=== PATIENT | female | born 1990 | race Caucasian/White ===

== ENCOUNTER 2018-03-23 00:22 | Outpatient (CLI) | payer BC, MEDICAID, SELFPAY ==
--- NOTE | 2018-03-23 09:48 | DI.US_ITS ---
SYMPTOMS/DIAGNOSIS: RT UPPER QUAD DISCOMFORT FOR YEARS, RUQ PAIN, R10.11 ABDOMEN ULTRASOUND: The liver is normal in size and echogenicity. No focal liver lesions or biliary dilatation is seen. The gallbladder has a normal appearance. There is no evidence of wall thickening or stones. The spleen, kidneys, pancreas and aorta appear normal. There is no ascites. IMPRESSION: Negative abdomen ultrasound.
== END 2018-03-23 00:42 ==
PROVIDERS: PCP Nurse Practitioner; Visit Provider Nurse Practitioner
DX: R10.11 Right upper quadrant pain (principal)
CPT/HCPCS: 76700

== ENCOUNTER 2018-04-23 09:26 | Day surgery (SDC) | payer BC, MEDICAID, SELFPAY ==
--- NOTE | 2018-04-23 06:24 | ROE_ITS ---
Operative Note DATE OF PROCEDURE: 04/23/18 PRE-OP DIAGNOSIS: Upper Abdominal pain POST-OP DIAGNOSIS: other (Moderate to severe inflammation of the stomach) PROCEDURE: EGD with biopsies SURGEON: Shantel Dean ANESTHESIA: MAC (Yesica Nunez) ESTIMATED BLOOD LOSS: 5 PATHOLOGY: other (Gastric biopsies) COMPLICATIONS: None Patient was transported to: same day Patient's condition: stable Indications: Ms. Sahni was seen in the office for upper abdominal pain. Risks , benefits and complications were reviewed with her regarding the EGD. Questions were entertained and answered to her satisfaction and she wished to proceed. No guarantees were given or implied. Findings: Moderate to severe inflammation of the stomach Procedure Description: After informed consent was obtained the patient was taken to the procedure room and placed in a left decubitous position. Monitors were applied and a time out was done. The patients name, date of , procedure, allergies to medications and metal in their body was reviewed. The patient was then sedated and a bite block was placed. The gastroscope was introduced and advanced through the oropharynx. The oropharynx was grossly normal. The scope was advanced into the esophagus. The proximal esophagus was normal. The mid-esophagus was normal. The distal esophagus was normal. The scope was advnaced into the stomach and through the pylorus into the duodenum. The duodenum was normal. The scope was retracted into the stomach. There was moderate to severe inflammation. Biopsies of the antrum were done. The scope was retroflexed and no hiatal hernia was identified. The scope was straightened and retracted into the esophagus. The Z-line was regular. The GE junction was at 35 cm. The patient tolerated the procedure well and there were no immediate complications. Follow up: The patient should follow up in 2-3 weeks
--- NOTE | 2018-04-23 06:25 | PDOC.DSDIS_ITS ---
Discharge Plan Disposition Patient Disposition: HOME Discharge Details Attending Provider: Shantel Dean Primary Care Provider: Esther Blankenship Home Meds and New Rx's Prescriptions: New omeprazole 40 mg capsule,delayed release(DR/EC) 40 mg PO .AM Qty: 30 RF: 3 Continue lamotrigine 200 MG tablet 200 mg PO DAILY Qty: 90 RF: 1 albuterol sulfate [ProAir HFA] 8.5 GM HFA aerosol inhaler 2 puff Inhalation ONCE Qty: 1 RF: 12 escitalopram oxalate 20 MG tablet 20 mg PO DAILY Qty: 90 RF: 3 Changed ranitidine HCl 150 MG capsule 300 mg PO HS Qty: 180 RF: 0 Discontinued ibuprofen 800 mg tablet 800 mg PO TID PRN (Reason: pain) Qty: 90 RF: 0 Discharge Instructions Instructions: Upper Endoscopy (DC), Gastritis (DC), Diet for Stomach Ulcers and Gastritis (GEN) Additional Instructions: Findings: 1. Moderate to severe inflammation of the stomach Follow up: 2-3 weeks New Medications: Omeprazole 40 mg in the morning Change Ranitidine to 300 mg every night Please call if you develop: fevers >101.5 Nausea or Vomiting Abdominal pain that is not transient 1. Because there will be medication in your system for the next 24 hours, you may feel a little sleepy. Your coordination will be affected. Therefore: a. Do not drive or operate dangerous equipment for 24 hours. b. Do not drink alcohol beverages for 24 hours (not even beer). c. Plan to go home and rest for the day. 2. Generally there are no restrictions on your activity after a day or so has gone by, but you may feel a bit fatigued for a few days. 3 After you arrive home you may have a light meal and return to a normal diet as you can tolerate it without feeling sick to your stomach. 4. After surgery, you may feel pain or discomfort. This should be only transient , but if it persists please contact your doctor. 5. If there are any questions regarding the findings of your procedure, please feel free to contact your doctor. 6. If you are unable to contact your doctor with a problem, contact the hospital at [phone]. 7. Continue all your regular medications unless directed otherwise. I understand the above instructions and have no questions. Signature of Patient or Responsible Adult Escort Date/Time Name of Responsible Adult Escort Signature of Nurse Date/Time Activity:: Activity as Tolerated Diet:: Low acid Discharge Orders Discharge Orders: Discharge Order (Routine); Ordered 04/23/18 Ordered By: Shantel Dean DS: Diagnosis Discharge Diagnosis (1) Gastritis: Status: Acute
[2018-04-23 09:38] VITALS: BP 111/74; PULSE 85; RESP 16; TEMP 36.8; O2SAT 97
[2018-04-23] MEDS: Lactated Ringers 1,000 ML 80 ML IV ×2 (10:19→11:56)
--- NOTE | 2018-04-23 12:02 | STOM_PTH ---
PATIENT: Sabrina Sahni LOC: [facility] U#:[id number] AGE/SX: 27/F ROOM: RE04/23/[address]: Shantel Dean MD : 1990 BED: DIS: 04/23/2018 SPEC #: [id number] RECD: 04/23/18 12:39 STATUS: MARY BETH RE #: [id number] TRISTIAN: 04/23/18 12:[address]: Shantel Dean DEPT: Surgical Specimen RECD BY: Leticia Richards ENTERED: 04/23/18 12:39 SP TYPE: STOMACH OTHR DR: Esther Blankenship APRN Tissues: 1 - STOMACH BIOPSY Procedures: GROSS AND MICRO LEVEL 4 Comments: [id number]
[2018-04-23 12:40] VITALS: BP 108/68; PULSE 60; RESP 16; TEMP 36.9; O2SAT 98
== END 2018-04-23 12:52 | disposition home or self-care (01) ==
LOC: SUR 09:26
PROVIDERS: PCP Nurse Practitioner; Visit Provider Surgery
PROC: 0DJ68ZZ Inspection of Stomach, Via Natural or Artificial Opening Endoscopic (ICD-10-PCS; CPT 43235; principal; 2018-04-23 11:15)
DX: R10.11 Right upper quadrant pain (principal); K29.50 Unspecified chronic gastritis without bleeding; B96.81 Helicobacter pylori [H. pylori] as the cause of diseases classified elsewhere; K21.9 Gastro-esophageal reflux disease without esophagitis; F17.210 Nicotine dependence, cigarettes, uncomplicated
CPT/HCPCS: 43239; 88305

== ENCOUNTER 2019-06-26 08:38 | Emergency (ER) | payer BC, SELFPAY ==
[2019-06-26 08:44] VITALS: BP 118/75; PULSE 74; RESP 18; TEMP 36.6; O2SAT 97
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
== END 2019-06-26 08:58 | disposition home or self-care (01) ==
PROVIDERS: Emergency Provider Emergency Medicine; PCP Nurse Practitioner
DX: J02.0 Streptococcal pharyngitis (principal)
CPT/HCPCS: 87880; 99283

== ENCOUNTER 2020-04-21 01:02 | Outpatient (CLI) | payer BC, SELFPAY ==
--- NOTE | 2020-04-21 06:15 | DI.US_ITS ---
EXAM: US PELVIS TRANSVAGINAL CLINICAL HISTORY: pelvic pain,r10.2 TECHNIQUE: Transabdominal and transvaginal imaging was performed using standard protocol. COMPARISON: US PELVIS TRANSVAG from 10/08/2014 FINDINGS: KIDNEYS: Kidneys are symmetric in size. No evidence of renal calculi. No evidence of hydronephrosis. No renal mass or cyst identified. UTERUS: Anteverted. 7.4 x 4.2 x 5.3 cm. Endometrium: 4 millimeters. An IUD is seen in the endometrium and appears appropriately positioned . Myometrium: No fibroids. scars. Cervix: Unremarkable. OVARIES: Right: Cyst or mass: None. Left: Cyst or mass: None. DOPPLER: Color: Symmetric and uniform flow to both ovaries. No hyperemia. Duplex: Normal ovarian arterial waveforms visualized. CUL-DE-SAC: Free fluid: None. IMPRESSION: 1. Normal-appearing uterus with endometrial stripe within normal limits. IUD. 2. Unremarkable bilateral ovaries. DATA REPOSITORY:
== END 2020-04-21 01:22 ==
PROVIDERS: PCP Nurse Practitioner; Visit Provider Obstetrics & Gynecology Gynecology
DX: R10.2 Pelvic and perineal pain (principal); Z97.5 Presence of (intrauterine) contraceptive device
CPT/HCPCS: 76830; 76856

== ENCOUNTER 2020-05-24 20:12 | Emergency (ER) | payer BC, SELFPAY ==
[2020-05-24 20:15] VITALS: BP 120/90; PULSE 85; RESP 16; TEMP 36.9; O2SAT 97
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
[2020-05-24] MEDS: Ibuprofen 800 MG TAB PO (20:34)
[2020-05-24] MEDS: Amoxicillin 875/Clav. 125 TAB PO (20:34)
== END 2020-05-24 20:40 | disposition home or self-care (01) ==
PROVIDERS: Emergency Provider Emergency Medicine; PCP Nurse Practitioner
DX: R68.84 Jaw pain (principal); K04.7 Periapical abscess without sinus
CPT/HCPCS: 99283

== ENCOUNTER 2020-05-29 01:41 | Outpatient (CLI) | payer BC, SELFPAY ==
[2020-05-31 11:52] LABS: SARS-CoV-2 RNA Not Detected (NotDetected); SARS-CoV-2 RNA Source Nasal/Nares
== END 2020-05-29 02:01 ==
PROVIDERS: PCP Nurse Practitioner; Visit Provider Surgery
DX: Z11.59 Encounter for screening for other viral diseases (principal); Z01.818 Encounter for other preprocedural examination
CPT/HCPCS: U0003

== ENCOUNTER 2022-03-09 14:33 | Outpatient (CLI) | payer BC, SELFPAY | END 2022-03-09 14:34 | disposition home or self-care (01) | LOC: DI.KIM 14:34 | PROVIDERS: PCP Nurse Practitioner; Visit Provider Nurse Practitioner | DX: R69 Illness, unspecified (principal) | CPT/HCPCS: 93010 ==

== ENCOUNTER 2022-04-01 12:21 | Outpatient (REF) | payer BC, SELFPAY ==
[2022-04-02 14:30] LABS: Chlamydia Result Negative (Negative); GC Result Negative (Negative)
== END 2022-04-01 12:22 | disposition home or self-care (01) ==
LOC: LBN 12:21
PROVIDERS: PCP Nurse Practitioner; Visit Provider Obstetrics & Gynecology Gynecology
DX: Z11.3 Encounter for screening for infections with a predominantly sexual mode of transmission (principal)
CPT/HCPCS: 87491; 87591

== ENCOUNTER 2022-04-07 11:24 | Outpatient (REF) | payer BC, SELFPAY ==
--- NOTE | 2022-04-07 10:30 | PAPFT_PTH ---
PATIENT: Sabrina Sahni LOC: [facility] U#:[id number] AGE/SX: 31/F ROOM: RE04/07/[address]: Mari Bennett : 1990 BED: DIS: 04/07/2022 SPEC #: [id number] RECD: 04/07/22 12:55 STATUS: MARY BETH REChristophe #: [id number] TRISTIAN: 04/07/22 10:[address]: Mari Bennett DEPT: [facility] Cytology RECD BY: Leticia Richards ENTERED: 04/07/22 12:55 SP TYPE: PAPFT OTHR DR: Esther Blankenship APRN Tissues: 1 - CX/ENDOCX FOR PAP SMEARS Procedures: PAP THIN PREP/[facility] Screening HPV DNA PROBE Comments: [id number]
--- OUTSIDE RECORDS SUMMARY | 2022-04-07 11:30 | XMS_ITS | Encounter Summary ---
:1990 Author Organization [facility] Address [address] [place] [address] Care Team Providers Name Role Phone Rigo Esteves MD Primary Care Provider Unavailable Encounter Details Date Type Department Care Team Description 01/22/2014 Hospital Encounter [facility] Unknown, Provider, Karthik Hickman [address] [place] [address] [place] [address] (Work) [phone] Social History Tobacco Use Types Packs/Day Years Used Date Never Assessed Sex Assigned at Date Recorded Not on file documented as of this encounter Discharge Disposition Disposition Code Departure Means Destination Home or Self Long Term documented in this encounter Plan of Treatment Not on filedocumented as of this encounter Visit Diagnoses Not on filedocumented in this encounter Care Teams Trainer Relationship Specialty Start Date End Date Rigo Esteves MD PCP - General 09/20/10 documented as of this encounter
--- OUTSIDE RECORDS SUMMARY | 2022-04-07 11:30 | XMS_ITS | Encounter Summary ---
:1990 Author Organization [facility] [place] [address] Care Team Providers Name Role Phone Esther Blankenship APRN Primary Care Provider Reason for Referral Diagnostic Test (Routine) - Closed Specialty Diagnoses / Procedures Referred By Contact Refer red To Contact Radiology Diagnoses Abdominal wall mass Endometriosis Jaya Garrett MD [facility] Rad Mri Procedures MRI Pelvis Soft Tissue(Gi Gu Caul Dresser)WWO Contrast MRI Pelvis Soft Tissue (Gi Gu Caul Dresser)WO Contrast [facility] [address] [place] [address] Referral ID Status Reason Start Date Expiration Date Visits V isits Requested Authorized [id number] Closed Specialty 12/29/2016 03/29/2017 1 1 Service Requested Reason for Visit Diagnostic Test (Routine) - Closed Specialty Diagnoses / Procedures Referred By Contact Refer red To Contact Radiology Diagnoses Abdominal wall mass Endometriosis Jaya Garrett MD [facility] Rad Mri Procedures MRI Pelvis Soft Tissue(Gi Gu Caul Dresser)WWO Contrast MRI Pelvis Soft Tissue (Gi Gu Caul Dresser)WO Contrast [facility] [place] [address] [place] [address] Referral ID Status Reason Start Date Expiration Date Visits V isits Requested Authorized [id number] Closed Specialty 12/29/2016 03/29/2017 1 1 Service Requested Encounter Details Date Type Department Care Team Description 01/02/2017 Hospital Encounter MRI at [facility] Jaya Garrett Abdominal wall mass; [facility] MD [address] [place], [place] [address] OBSTETRICS & [phone] [place] [address] Social History Tobacco Use Types Packs/Day Years Used Date Current Every Day Smoker 0.5 Smokeless Tobacco: Never Used Alcohol Use Standard Drinks/Week Comments Yes 0 (1 standard drink = 0.6 oz pure alcoho l) seldom Alcohol Habits Answer Date Recorded How often do you have a drink containing alcohol? Not asked How many drinks containing alcohol do you have on a typical Not asked day when you are drinking? How often do you have six or more drinks on one occasion? No t asked Comment: seldom 07/27/2015 Sex Assigned at Date Recorded Not on file documented as of this encounter Medications at Time of Discharge Medication Sig Dispensed Refills Start Date End Date buPROPion (WELLBUTRIN XL) take 1 tablet by mouth 0 12/28/2016 300 mg Tablet Sustained daily every morning Release 24 hr levonorgestrel (MIRENA) 1 each by Intrauterine 0 20 mcg/24 hr (5 years) route once. IUDIndications: inserted Indications: inserted 10/2015 per patient 10/2015 per patient pantoprazole (PROTONIX) Reported on 01/02/2017 0 0 10/05/2016 40 mg Tablet, Delayed Release (E.C.) dextroamphetamine-ampheta Reported on 01/02/2017 0 09/22/2016 mine (ADDERALL) 10 mg Tablet Biotin 5 mg Capsule Take by mouth. 0 albuterol (PROVENTIL Inhale 2 puffs into 1 Inhaler 1 2016 HFA;VENTOLIN HFA;PROAIR) the lungs every 4 90 mcg/actuation HFA hours as needed for Aerosol Inhaler Wheezing. Use with spacer ondansetron (ZOFRAN-ODT) Take 1 tablet by mouth 20 tablet 1 10/24/2015 4 mg Tablet, Rapid every 8 hours as Dissolve needed for Nausea. ibuprofen (ADVIL;MOTRIN) Take 3 tablets by 30 tablet 0 10/08 200 mg Tablet mouth every 6 hours as needed for Pain. Ranitidine HCl (ZANTAC) Take 300 mg by mouth 0 300 mg Capsule every evening. Reported on 10/20/2016 documented as of this encounter Plan of Treatment Not on filedocumented as of this encounter Procedures Procedure Name Priority Date/Time Associated Diagnosis Comme nts MRI PELVIS SOFT Routine 01/02/2017 11:57 AM Abdominal wa ll mass Results for this TISSUE (GI WELDING MACHINE OPERATOR RESISTANCE) EDT Endometriosis procedur e are in WWO CONTRAST the results section. documented in this encounter Results MRI Pelvis Soft Tissue(Gi Gu Caul Dresser)WWO Contrast (01/02/2017 11:57 AM EDT) Anatomical Region Laterality Modality Pelvis Magnetic Resonance Specimen (Source) Anatomical Location Collection Method / Collectio n Time Received Time / Laterality Volume Impressions 01/03/2017 9:18 AM EDT 1. ??No MRI signal abnormality in the left rectus abdominus surgical bed. 2. ??No lesions in the subcutaneous tiss ues or deep to the four anterior abdominal wall makers. 3. ??No evidence of intraperitoneal endo metrial implants. I have personally reviewed the image(s) and the residents interpretation and agree with the findings, Tova triana 01/03/2017 9:18 AM Narrative 01/03/2017 9:18 AM EDT EXAMINATION: MRI PELVIS SOFT TISSUE (GI WELDING MACHINE OPERATOR RESISTANCE) WWO CONTRAST CLINICAL HISTORY: abdominal wall mass, p rior endometrioma excision on 10/23/2015 from the left anterior abdominal wall wi th recurrent pain and lump at site. Additional history includes 1-2mm firm n odule in LLQ surgical scar, tender with palpation. TECHNIQUE: MRI of the abdomen and pelvis with intra venous contrast, 20 cc of Dotarem was administered intravenously. Four markers are placed on the skin to indicate the site of interest. COMPARISON: MRI of the abdomen 10/03/2015 FINDINGS: No MRI signal abnormality in the locatio n of the prior resection site in the left rectus abdominus muscle. No lesions in the subcutaneous tissues or deep to or between the four anterior abdominal w all markers which were placed to indicate the recurrent pain and lump. Normal appearance of the uterus and both ovaries. No peritoneal nodules or free fluid. Images of the upper abdomen demonstrate no focal hepatic abnormalities. ?? No dilated intrahepatic or extrahepatic lupillo e ducts. The gallbladder is normal in appearance. ??The pancreas is normal in appearance. ??The pancreatic duct is not dilated. ??No splenic abnormalities are seen. The adrenal glands are unremarkable. ??B oth kidneys opacify symmetrically with contrast without collecting system dilat ation. No renal mass. No abdominal aortic aneurysm is seen. ?? No retroperitoneal lymphadenopathy is seen. No dilated loops of bowel or bowel wall thickening. No focal bone marrow signal abnormality. Procedure Note Tova Barillas MD - 01/03/2017Formatt ing of this note might be different from the original. EXAMINATION: MRI PELVIS SOFT TISSUE (GI WELDING MACHINE OPERATOR RESISTANCE) WWO CONTRAST CLINICAL HISTORY: abdominal wall mass, p rior endometrioma excision on 10/23/2015 from the left anterior abdominal wall wi th recurrent pain and lump at site. Additional history includes 1-2mm firm n odule in LLQ surgical scar, tender with palpation. TECHNIQUE: MRI of the abdomen and pelvis with intra venous contrast, 20 cc of Dotarem was administered intravenously. Four markers are placed on the skin to indicate the site of interest. COMPARISON: MRI of the abdomen 10/03/2015 FINDINGS: No MRI signal abnormality in the locatio n of the prior resection site in the left rectus abdominus muscle. No lesions in the subcutaneous tissues or deep to or between the four anterior abdominal w all markers which were placed to indicate the recurrent pain and lump. Normal appearance of the uterus and both ovaries. No peritoneal nodules or free fluid. Images of the upper abdomen demonstrate no focal hepatic abnormalities. No dilated intrahepatic or extrahepatic lupillo e ducts. The gallbladder is normal in appearance. The pancreas is normal in ap pearance. The pancreatic duct is not dilated. No splenic abnormalities are se en. The adrenal glands are unremarkable. Bot h kidneys opacify symmetrically with contrast without collecting system dilat ation. No renal mass. No abdominal aortic aneurysm is seen. No retroperitoneal lymphadenopathy is seen. No dilated loops of bowel or bowel wall thickening. No focal bone marrow signal abnormality. IMPRESSION 1. No MRI signal abnormality in the left rectus abdominus surgical bed. 2. No lesions in the subcutaneous tissue s or deep to the four anterior abdominal wall makers. 3. No evidence of intraperitoneal endome trial implants. I have personally reviewed the image(s) and the residents interpretation and agree with the findings, Tova triana 01/03/2017 9:18 AM Jaya Garrett MD IMG MRI ORDERABLES documented in this encounter Visit Diagnoses Diagnosis Abdominal wall mass Abdominal or pelvic swelling, mass or mounika mp, unspecified site Endometriosis Endometriosis, site unspecified documented in this encounter Care Teams Bottle House Cleaners Supervisor Relationship Specialty Start Date End Date Esther Blankenship APRN PCP - General Internal Medicine 10/21/[address] [place] [address] documented as of this encounter
--- OUTSIDE RECORDS SUMMARY | 2022-04-07 11:30 | XMS_ITS | Encounter Summary ---
:1990 Author Organization [facility] Address [address] [place] [address] Care Team Providers Name Role Phone Rigo Esteves MD Primary Care Provider Unavailable Encounter Details Date Type Department Care Team Description 12/13/2013 Results Only [facility] Dedrick Ramesh, [facility] Laboratory Services - [address] [place], [place] [address] [facility] [address] [place] [address] [phone] Social History Tobacco Use Types Packs/Day Years Used Date Never Assessed Sex Assigned at Date Recorded Not on file documented as of this encounter Plan of Treatment Not on filedocumented as of this encounter Procedures Procedure Name Priority Date/Time Associated Diagnosis Comme nts PAP TEST- RESULT Routine 12/13/2013 0:00 EDT Resu lts for this ONLY procedure are i n the results section. documented in this encounter Results PAP TEST- RESULT ONLY (12/13/2013 0:00 EDT) Pathology Report: CYTOPATHOLOGY REPORT MODE [facility] Reports generated via electronic interface contain guero ginal data; however they are lacking the format of the original re port. Caution should be taken when reading/interpreting unfo rmatted reports. Name: ? SABRINA STAUFFER ? Accession #: ? [id number] : ? 1990 (Age: 23) ??F ?Collect Date: ? 12/2013 Location: ? [facility] ? Receive Date : ? 12/16/2013 Provider: ?ROB BYRON PLATE PRINTER Copy to: ? Specimen/Source: ? Pap Test, Cervix/Endocervix, ThinPrep Imaging System with manual evaluation Last Menstrual Period: ? 11/11/2013 ? SPECIMEN ADEQUACY ? Satisfactory for Evaluation - transformation zone component present GENERAL CATEGORIZATION ? Negative for Intraepithelial Lesion or Malignan cy ? Document reviewed and electronically signed by: ? KSENIA Cummins(ASCP) ? Report Date: ??12/23/2013 10:14 End of Report Specimen Performing Organization Address City/State/ZIP Code Phon e Number [facility] [address] [place] [address] SERVICES [facility] [address] [place] [address] documented in this encounter Visit Diagnoses Not on filedocumented in this encounter Care Teams Solution Design Engineer Relationship Specialty Start Date End Date Rigo Esteves MD PCP - General 09/20/10 documented as of this encounter
--- OUTSIDE RECORDS SUMMARY | 2022-04-07 11:30 | XMS_ITS | Encounter Summary ---
:1990 Author Organization [facility] [place] [address] Care Team Providers Name Role Phone Esther Blankenship APRN Primary Care Provider Reason for Visit Reason Comments Follow-up MRI Encounter Details Date Type Department Care Team Description 01/02/2017 Office Visit Obstetrics and Jaya Garrett, Depressi on, unspecified depression type; [place] [facility] [place] Endometriosis [facility] [address] [place] OBSTETRICS & [address] GYNECOLOGY [phone] [place], [place] [address] Social History Tobacco Use Types Packs/Day Years [...] on file documented as of this encounter Last Filed Vital Signs Vital Sign Reading Time Taken Comments Blood Pressure 108/64 01/02/2017 12:58 PM EDT Pulse 80 01/02/2017 12:58 PM EDT Temperature 37.3 ??C (99.2 ??F) 01/02/2017 12:58 PM EDT Respiratory Rate 14 01/02/2017 12:58 PM EDT Oxygen Saturation 97% 01/02/2017 12:58 PM EDT Inhaled Oxygen Concentration - - Weight 72.9 kg (160 lb 11.5 oz) 01/02/2017 12:58 PM EDT Height 166 cm (5' 5.35) 01/02/2017 12:58 PM EDT Body Mass Index 26.46 01/02/2017 12:58 PM EDT documented in this encounter Progress Notes Jaya Garrett MD - 01/02/2017 1:00 PM EDT Sabrina was seen in followup today after an MRI to assess the extent of recurrent endometriosis in her abdominal wall. At the time of the visit, the results of the MRI were not available to us. She states that she does have ongoing severe pain in her abdominal wall at 3 different spots; on the left where her prior surgery was and then on the right side supraumbilically is a small nodule that bothers her. This is cyclic pain and is not associated with any activities. Sabrina would like to have me sign paperwork today limiting her number of hours she participates in work-like activities due to her endometriosis-type pain. I told her I am not comfortable with that, as endometriosis is not a usual diagnosis associated with disability. I did offer to refer [facility] for evaluation and recommend that her primary care provider be the person to assess her ability to attend the time work events. At this point, the patient was visibly upset and asked if she could leave. She walked out of the appointment before we could discuss the results of the MRI. The MRI results are available to me at the time of dictation, showing no residual endometriosis-like lesions or other disease in the anterior abdominal wall at the site of surgery or any other areas. There are no obvious lesions in the abdomen or pelvis intraperitoneally. Sabrina does have an intrauterine device in situ and this has been the best menstrual control that she has had. I recommend that she keep this device long-term, and if she has severe recurrent cyclic pelvic pain unrelated to this abdominal wall pain, a diagnostic laparoscopy for endometriosis may be warranted at some point in the future. I spent 25 minutes in [id number] care with the patient, of which 25 minutes was spent in counseling and discussion. documented in this encounter Plan of Treatment Not on filedocumented as of this encounter Visit Diagnoses Diagnosis Depression, unspecified depression type Endometriosis Endometriosis, site unspecified documented in this encounter Care Teams Brush Sander Relationship Specialty Start Date End Date Esther Blankenship APRN PCP - General Internal Medicine 10/21/[address] [place] [address] documented as of this encounter
--- OUTSIDE RECORDS SUMMARY | 2022-04-07 11:30 | XMS_ITS | Encounter Summary ---
:1990 [place] [address] Care Team Providers Name Role Phone None Primary Care Provider Unavailable Reason for Visit Reason Comments Dental Pain Encounter Details Date Type Department Care Team Description 02/15/2016 - Emergency Emergency Amy Esquivel Pain, denta l; 02/16/2016 Department Elen Zurita MD Temporomandibular joint (TMJ) pain; [facility] MEDICAL Pulpitis; [facility] Arthralgia of left temporomandibular mario nt [facility] [address] MEDICINE [place] [phone] Social History Tobacco Use Types Packs/Day Years [...] Sign Reading Time Taken Comments Blood Pressure 120/76 02/15/2016 10:25 PM EDT Pulse 69 02/15/2016 10:25 PM EDT Temperature 36.7 ??C (98.1 ??F) 02/15/2016 10:25 PM EDT Respiratory Rate 16 02/15/2016 10:25 PM EDT Oxygen Saturation 99% 02/15/2016 10:25 PM EDT Inhaled Oxygen Concentration - - Weight - - Height - - Body Mass Index - - documented in this encounter Discharge Instructions Discharge InstructionsAmy Esquivel MD - 02/15/2016 11:54 PM EDT Images from the original note were not included. Take penicillin as prescribed. Take ibuprofen 400 mg every 6 hours as needed for pain. Follow-up with your dentist. [facility] Head or Face Pain: After Your Visit Your Care Instructions Common causes of head or face pain are allergies, stress, and injuries. Other causes include tooth problems and sinus infections. Eating certain foods, such as chocolate or cheese, or drinking certain liquids, such as coffee or cola, can cause head pain for some people. If you have mild head pain, you may not need treatment. It is important to watch your symptoms and talk to your doctor if your pain continues or gets worse. Follow-up care is a johnson part of your treatment and safety. Be sure to make and go to all appointments, and call your doctor if you are having problems. It???s also a good idea to know your test resultsand keep a list of the medicines you take. How can you care for yourself at home? ?? Take pain medicines exactly as directed. ?? If the doctor gave you a prescription medicine for pain, take it as prescribed. ?? If you are not taking a prescription pain medicine, ask your doctor if you can take an bwdo-oxq-pdgukve pain medicine. ?? Take it easy for the next few days or longer if you are not feeling well. ?? Use a warm, moist towel or heating pad set on low to relax tight muscles in your shoulder and neck. Have someone gently massage your neck and shoulders. ?? Put ice or a cold pack on the area for 10 to 20 minutes at a time. Put a thin cloth between the ice and your skin. When should you call for help? Call 911 anytime you think you may need emergency care. For example, call if: ?? You have twitching, jerking, or a seizure. ?? You passed out (lost consciousness). ?? You have signs of a stroke. These may include: ?? Sudden numbness, paralysis, or weakness in your face, arm, or leg, especially on only one side ofyour body. ?? New problems with walking or balance. ?? Sudden vision changes. ?? Drooling or slurred speech. ?? New problems speaking or understanding simple statements, or feeling confused. ?? A sudden, severe headache that is different from past headaches. ?? You have jaw pain and pain in your chest, shoulder, neck, or arm. Call your doctor now or seek immediate medical care if: ?? You have a fever with a stiff neck or a severe headache. ?? You have nausea and vomiting, or you cannot keep food or liquids down. Watch closely for changes in your health, and be sure to contact your doctor if: ?? Your head or face pain does not get better as expected. Where can you learn more? Visit our [employer] information library at [email or web address] You can also view health information on [employer], your personal patient account. Log in or sign up today. Enter P568 in the search box to learn more about Head or Face Pain: After Your Visit. ?? [id number] [employer]. Care instructions adapted under license by [facility]. This care instruction is for use with your licensed healthcare professional. If you have questionsabout a medical condition or this instruction, always ask your healthcare professional. [employer] disclaims any warranty or liability for your use of this information. Content Version: 10.4.641385; Current as of: May 23, 2014 [facility] Head or Face Pain: After Your Visit Your Care Instructions Common causes of head or face pain are allergies, stress, and injuries. Other causes include tooth problems and sinus infections. Eating certain foods, such as chocolate or cheese, or drinking certain liquids, such as coffee or cola, can cause head pain for some people. If you have mild head pain, you may not need treatment. It is important to watch your symptoms and talk to your doctor if your pain continues or gets worse. Follow-up care is a johnson part of your treatment and safety. Be sure to make and go to all appointments, and call your doctor if you are having problems. It???s also a good idea to know your test resultsand keep a list of the medicines you take. How can you care for yourself at home? ?? Take pain medicines exactly as directed. ?? If the doctor gave you a prescription medicine for pain, take it as prescribed. ?? If you are not taking a prescription pain medicine, ask your doctor if you can take an xpcx-lyr-uigcalr pain medicine. ?? Take it easy for the next few days or longer if you are not feeling well. ?? Use a warm, moist towel or heating pad set on low to relax tight muscles in your shoulder and neck. Have someone gently massage your neck and shoulders. ?? Put ice or a cold pack on the area for 10 to 20 minutes at a time. Put a thin cloth between the ice and your skin. When should you call for help? Call 911 anytime you think you may need emergency care. For example, call if: ?? You have twitching, jerking, or a seizure. ?? You passed out (lost consciousness). ?? You have signs of a stroke. These may include: ?? Sudden numbness, paralysis, or weakness in your face, arm, or leg, especially on only one side ofyour body. ?? New problems with walking or balance. ?? Sudden vision changes. ?? Drooling or slurred speech. ?? New problems speaking or understanding simple statements, or feeling confused. ?? A sudden, severe headache that is different from past headaches. ?? You have jaw pain and pain in your chest, shoulder, neck, or arm. Call your doctor now or seek immediate medical care if: ?? You have a fever with a stiff neck or a severe headache. ?? You have nausea and vomiting, or you cannot keep food or liquids down. Watch closely for changes in your health, and be sure to contact your doctor if: ?? Your head or face pain does not get better as expected. Where can you learn more? Visit our health information library at [email or web address] You can also view health information on [employer], your personal patient account. Log in or sign up today. Enter P568 in the search box to learn more about Head or Face Pain: After Your Visit. ?? [id number] [employer]. Care instructions adapted under license by [facility]. This care instruction is for use with your licensed healthcare professional. If you have questionsabout a medical condition or this instruction, always ask your healthcare professional. [employer] disclaims any warranty or liability for your use of this information. Content Version: 10.4.027837; Current as of: May 23, 2014 documented in this encounter Medications at Time of Discharge Medication Sig Dispensed Refills Start Date End Date ondansetron (ZOFRAN-ODT) Take 1 tablet by 20 tablet 1 10/23 4 mg Tablet, Rapid mouth every 8 hours Dissolve as needed for Nausea. ibuprofen (ADVIL;MOTRIN) Take 3 tablets by 30 tablet 0 10/08 200 mg Tablet mouth every 6 hours as needed for Pain. Ranitidine HCl (ZANTAC) Take 300 mg by mouth 0 300 mg Capsule every evening. Reported on 10/20/2016 penicillin v potassium Take 1 tablet by 40 tablet 0 016 02/25/2016 (VEETID) 500 mg Tablet mouth 4 times daily for 10 days. documented as of this encounter ED Notes Amy Esquivel MD - 02/15/2016 11:54 PM EDT Images from the original note were not included. Chief Complaint Patient presents with ??? Dental Pain HPI The patient is a 25-year-old woman who comes to the emergency department with left jaw pain for one month. She has a history of dental caries and multiple extractions. She saw her dentist about her posterior most lower molar on the left side a couple months ago and it was causing her some discomfort. At that time her dentist decided to watch it and consider extraction later if it caused her problems.She has had this pain for the past month and rates it at a 5 out of 10 now. 7 out of 10 was it's worse. It is worse when she opens her mouth and better with ibuprofen. She says 800 mg of ibuprofen is ineffective for the tooth pain. She tried some penicillin at home which was one year and did not get any significant improvement. Her boyfriend is upstairs admitted for seizures and so she decided to come to the emergency department to be evaluated. She has no fever. She has a sinusitis a few weeks ago. She has some residual cough. She has no headache or trismus. No diplopia or ear drainage. She has chronic lightheadedness. No shortness of breath, difficult to swallowing or pain with swallowing or difficulty breathing. No chest pain. No vomiting. She has had some intermittent nausea that has resolved. Allergies Allergen Reactions ??? Zoloft [Sertraline] Itching Review of Systems Physical Exam Constitutional: She is oriented to person, place, and time. She appears well- developed and well-nourished. No distress. HENT: Head: Normocephalic and atraumatic. Right Ear: External ear normal. Left Ear: External ear normal. Nose: Nose normal. Mouth/Throat: Oropharynx is clear and moist and mucous membranes are normal. No oral lesions. No trismus in the jaw. Abnormal dentition. Dental caries present. No dental abscesses, uvula swelling or lacerations. No oropharyngeal exudate. The patient has some missing teeth from extractions. Diffuse dental caries. No significant erythema or swelling of the gum most notably at the left posterior lower molar where her pain is concentrated.She has some tenderness over the jaw at that at that location but has no swelling or warmth or erythema. Bilateral TMs were clear. She did have some pain over the temporomandibular joint on the left with mouth opening. Eyes: Conjunctivae are normal. Right eye exhibits no discharge. Left eye exhibits no discharge. No scleral icterus. Neck: Normal range of motion. Neck supple. Cardiovascular: Normal rate, regular rhythm and normal heart sounds. Exam reveals no gallop and no friction rub. No murmur heard. Pulmonary/Chest: Effort normal and breath sounds normal. No stridor. No respiratory distress. She has no wheezes. She has no rales. She exhibits no tenderness. Abdominal: Soft. Bowel sounds are normal. She exhibits no distension and no mass. There is no tenderness. There is no rebound and no guarding. Musculoskeletal: She exhibits no edema. Lymphadenopathy: She has no cervical adenopathy. Neurological: She is alert and oriented to person, place, and time. Skin: Skin is warm and dry. She is not diaphoretic. Psychiatric: She has a normal mood and affect. Nursing note and vitals reviewed. Procedures MDM ED Course: ED Course There is no data filed. The patient was given penicillin for 10 days for presumed pulpitis. She does have pain in her jaw around the site of her left lower posterior most molar. Her dentist had been considering extraction andthat may be what she needs at this point. She will use ibuprofen for pain and follow up with her dentist. She has no signs of airway compromise or deep space neck or facial infection. Amy Esquivel MD 02/16/16 0043 documented in this encounter Miscellaneous Notes ED Triage - Joanne Junior RN - 02/15/2016 10:24 PM EDT Pt comes with tooth pain in last tooth either upper or lower, pt not sure. States it really started bothering her a month ago. Pt thinks she has an abcess. No facial swelling noted, pt con't to smoke. documented in this encounter Plan of Treatment Not on filedocumented as of this encounter Visit Diagnoses Diagnosis Pain, dental Unspecified disorder of the teeth and melgar pporting structures Temporomandibular joint (TMJ) pain Pulpitis Arthralgia of left temporomandibular mario nt Arthralgia of temporomandibular joint documented in this encounter Care Teams Teacher Of The Deaf/Hard Of Hearing Relationship Specialty Start Date End Date None PCP - General 04/24/15 10/20/16 None documented as of this encounter
--- OUTSIDE RECORDS SUMMARY | 2022-04-07 11:30 | XMS_ITS | Clinical Summary ---
:1990 Author Organization [facility] Address [address] [place] [address] Care Team Providers Name Role Phone Rigo Esteves MD Primary Care Provider Unavailable Encounters Date Type Specialty Care Team Description 04/01/2022 Lab Requisition Clinical Laboratory Outr Resulting Lab , Provider from Last 3 Months Social History Tobacco Use Types Packs/Day Years Used Date Never Assessed Sex Assigned at Date Recorded Not on file Plan of Treatment Health Maintenance Due Date Last Done Comments Hepatitis C Screen 1990 COVID-19 Vaccine (#1) 1990 Procedures Procedure Name Priority Date/Time Associated Comments Diagnosis CHLAMYDIA/N. Routine 04/01/2022 10:30 Results for this GONORRHOEAE AMPLIFIED EDT proced ure are in RNA the results section. from Last 3 Months Results CHLAMYDIA/N. GONORRHOEAE AMPLIFIED RNA (04/01/2022 10:30 EDT) Pathologist Sig nature Gonococcus Result Negative Negative [facility] Chlamydia Result Negative Negative [facility] Specimen Swab - Entire endocervix (body structure ) Performing Organization Address City/State/ZIP Code Phon e Number [facility] [address] [place] [address] SERVICES from Last 3 Months Care Teams Rig Builder Helper Relationship Specialty Start Date End Date Rigo Esteves MD PCP - General 09/20/10
--- OUTSIDE RECORDS SUMMARY | 2022-04-07 11:30 | XMS_ITS | Encounter Summary ---
:1990 Author Organization [facility] Address [address] [place] [address] Care Team Providers Name Role Phone Rigo Esteves MD Primary Care Provider Unavailable Encounter Details Date Type Department Care Team Description 04/23/2018 Hospital Encounter [facility]- Lucy Unknown, Provider, Karthik Bingham [address] [place] [address] [place] [address] (Work) [phone] Social History Tobacco Use Types Packs/Day Years Used Date Never Assessed Sex Assigned at Date Recorded Not on file documented as of this encounter Discharge Disposition Disposition Code Departure Means Destination Home or Self Custodial documented in this encounter Plan of Treatment Not on filedocumented as of this encounter Visit Diagnoses Not on filedocumented in this encounter Care Teams Food Inspector Relationship Specialty Start Date End Date Rigo Esteves MD PCP - General 09/20/10 documented as of this encounter
--- OUTSIDE RECORDS SUMMARY | 2022-04-07 11:30 | XMS_ITS | Encounter Summary ---
:1990 Author Organization [facility] [place] [address] Care Team Providers Name Role Phone Esther Blankenship APRN Primary Care Provider Encounter Details Date Type Department Care Team Description 11/22/2016 Telephone Obstetrics and Gynec ology at [facility] [place] [place] [address] Social History Tobacco Use Types Packs/Day Years [...] on file documented as of this encounter Miscellaneous Notes Telephone Encounter - Lia Mendez - 11/23/2016 7:52 AM EDT Patient scheduled documented in this encounter Plan of Treatment Not on filedocumented as of this encounter Visit Diagnoses Not on filedocumented in this encounter Care Teams Fitter Machinist Relationship Specialty Start Date End Date Esther Blankenship APRN PCP - General Internal Medicine 10/21/16 [address] [place] [address] documented as of this encounter
--- OUTSIDE RECORDS SUMMARY | 2022-04-07 11:30 | XMS_ITS | Encounter Summary ---
:1990 [place] [address] Care Team Providers Name Role Phone None Primary Care Provider Unavailable Reason for Visit Reason Comments Follow-up Encounter Details Date Type Department Care Team Description 10/20/2016 Office Visit Obstetrics and Gynecology Jaya Rubio MD Endometriosis at [facility] [address] [place] & [place] [address] GYNECOLOGY [phone] [place] [id number] (Wo rk) Social History Tobacco Use Types Packs/Day Years [...] Sign Reading Time Taken Comments Blood Pressure 116/66 10/20/2016 7:18 PM EDT Pulse 95 10/20/2016 7:18 PM EDT Temperature - - Respiratory Rate 24 10/20/2016 7:18 PM EDT Oxygen Saturation 99% 10/20/2016 7:18 PM EDT Inhaled Oxygen Concentration - - Weight 72.9 kg (160 lb 12.8 oz) 10/20/2016 7:18 PM EDT Height - - Body Mass Index 26.35 10/09/2015 1:19 PM EDT documented in this encounter Progress Notes Jaya Garrett MD - 10/20/2016 7:00 PM EDT HPI: Sabrina Sahni is a 26 y.o. female with recurrent dysmenorrhea, abdominal wall pain atsite of prior endometrioma excision. The pain is cyclic starting with burning just prior to menses, increasing, then abating after her cycle. Also having worsening cramping and dyschezia. She did have relief for about 1 year since last surgery and mirena insertion. Smoking 1/2 PPD but contemplating quitting. Review of Systems - Psych-- irritability, mood lability pulm-- no SOB> some cough this week. General- no fever, chills GI-- no N/V, diarrhea - no frequency/ hematuria/incontinence All other systems reviewed and negative Patient Active Problem List Diagnosis Code ??? Endometriosis N80.9 ??? Postural dizziness R42 ??? Abdominal wall mass R22.2 ??? Worsening headaches R51 ??? Reactive airway disease J45.909 Current Outpatient Prescriptions: ??? pantoprazole (PROTONIX) 40 mg Tablet, Delayed Release (E.C.), , Disp: , Rfl: 0 ??? Biotin 5 mg Capsule, Take by mouth., Disp: , Rfl: ??? dextroamphetamine-amphetamine (ADDERALL) 10 mg Tablet, Reported on 10/20/2016, Disp: , Rfl: 0 ??? ALPRAZolam (XANAX) 0.25 mg Tablet, Reported on 10/20/2016, Disp: , Rfl: 0 ??? albuterol (PROVENTIL HFA;VENTOLIN HFA;PROAIR) 90 mcg/actuation HFA Aerosol Inhaler, Inhale 2 puffs into the lungs every 4 hours as needed for Wheezing. Use with spacer, Disp: 1 Inhaler, Rfl: 1 ??? ondansetron (ZOFRAN-ODT) 4 mg Tablet, Rapid Dissolve, Take 1 tablet by mouth every 8 hours as needed for Nausea. (Patient not taking: Reported on 10/20/2016), Disp: 20 tablet, Rfl: 1 ??? ibuprofen (ADVIL;MOTRIN) 200 mg Tablet, Take 3 tablets by mouth every 6 hours as needed for Pain. (Patient not taking: Reported on 10/20/2016), Disp: 30 tablet, Rfl: 0 ??? Ranitidine HCl (ZANTAC) 300 mg Capsule, Take 300 mg by mouth every evening. Reported on 10/20/2016, Disp: , Rfl: Wt Readings from Last 3 Encounters: 10/20/16 72.9 kg (160 lb 12.8 oz) 11/09/15 76.5 kg (168 lb 11.2 oz) 10/09/15 75.3 kg (165 lb 14.4 oz) Vitals: 10/20/16 1918 BP: 116/66 Pulse: 95 Resp: 24 SpO2: 99% Weight: 72.9 kg (160 lb 12.8 oz) Physical Exam: On exam she appeared her stated age and in no acute distress. Skin:non-diaphoretic, without rash/lesions Neurological: She is alert and oriented to person, place, and time. Psychiatric:Affect is appropriate. Oriented x 3. HEENT: Normocephalic. Anicteric, normal scleral and conjunctivae. Lungs: Inspiratory and expiratory wheezes throughout both lungs. The abdomen was soft, non-tender, and without guarding or rebound. 1-2mm firm nodule in LLQ surgicalscar, tender with palpation. Pelvic Exam: External female genitalia: normal hair distribution and architecture, no lesions Normal bladder, urethral meatus, urethra Vagina: well estrogenized, no abnormal discharge or blood in the vaginal vault Cervix: without lesions or CMT. Uterus: 6 weeks size and anteverted. Adnexa: Small and nontender, without masses Anus/perineum: no lesions LABS AND IMAGING: Results for orders placed or performed during the hospital encounter of 10/21/15 Surgical Pathology Report Result Value Ref Range Surgical Pathology Report [id number] Location: OR The signing pathologist has (i) examined the relevant preparation(s) for the specimen(s) and (ii) rendered or confirmed the diagnosis(es). . Frozen Section FROZEN SECTION DIAGNOSIS AFS - Abdominal wall mass: Endometriosis. - JLG 10/21/15 13:30 10/21/15 Verified by: Fausto MALDONADO, Jw Gee, Pathologist The attending pathologist whose electronic signature appears on this report has reviewed all diagnostic slides in rendering the frozen section diagnosis. This intraoperative consultation should be interpreted as a preliminary diagnosis pending review of the entire specimen and special studies, if any. Surgical Pathology Report Result Value Ref Range Surgical Pathology Report [id number] Location: [facility]; OR45; A The signing pathologist has (i) examined the relevant preparation(s) for the specimen(s) and (ii) rendered or confirmed the diagnosis(es). . Surgical Pathology DIAGNOSIS A - Abdominal wall mass, biopsy for frozen section: Fibromuscular connective tissue with foci of endometriosis. B - Left uterosacral biopsy: Fibroadipose tissue with the edge of a benign gland, consistent with focus of endometriosis. C - Peritoneum, biopsy: Scanty, crushed strand of fibrous connective tissue, focus of endometriosis not excluded. 10/23/15 ARS 10/23/15 Verified by: Maxx MALDONADO, Nolan Patel Pathologist (Electronic Signature) The attending pathologist whose signature appears on this report has reviewed all diagnostic slides and has edited the gross and/or microscopic portion of the report in rendering the final pathologic diagnosis. CLINICAL INFORMATION Specimen Submitted: A - Abdominal wall mass for frozen section B - Left uterosacal biopsy C - Peritoneal biopsy Clinical History: Endometriosis, suspected abdominal endometrial implant Clinical Diagnosis: Same SPECIMEN PROCESSING A - Labeled/Fixative: Abdominal wall mass, fresh. Quantity/Size: Single, 3.1 x 2.6 x 1.1 cm. Tissue Description: Soft red-brown tissue with cautery along the periphery. The specimen is inked and serially sectioned. Sectioning reveals firm mixed white and yellow tissue. Sections/Processing: (1) frozen section residue; (2, 3) assistance representative sections of mass (R3) B - Labeled/Fixative: Left uterosacral biopsy, fresh. Quantity/Size: Single, 0.7 x 0.2 x 0.1 cm. Tissue Description: Small fragment of red-pink soft tissue. Sections/Processing: (T1) C - Labeled/Fixative: Peritoneal biopsy, fresh. Quantity/Size: Single, 1.6 x less than 0.1 x less than 0.1 cm. Tissue Description: The elongated strand of clear white firm tissue. Sections/Processing: (T1) lnt . Frozen Section FROZEN SECTION DIAGNOSIS AFS - Abdominal wall mass: Endometriosis. - JLG 10/21/15 13:30 10/21/15 Verified by: Fausto MALDONADOJw, Pathologist The attending pathologist whose electronic signature appears on this report has reviewed all diagnostic slides in rendering the frozen section diagnosis. This intraoperative consultation should be interpreted as a preliminary diagnosis pending review of the entire specimen and special studies, if any. ASSESSMENT AND PLAN: 26 y.o. 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 She has not yet tried lupron and we discussed that as next probable therapeutic route. She would prefer excision of the nodule in her scar, followed by Lupron trial this summer. She does have h/o needing an inhaler as a child, some episodes of adult bronchial infections. Audibly wheezing today and prescribed albuterol inhaler for PRN use. Recommend f/u with PCP if symptoms persist or worsen. Jaya Garrett MD, PhD, FACOG 7:46 PM documented in this encounter Plan of Treatment Not on filedocumented as of this encounter Visit Diagnoses Diagnosis Endometriosis Endometriosis, site unspecified documented in this encounter Care Teams Wildlife Policy Professional Relationship Specialty Start Date End Date None PCP - General 04/24/15 10/20/16 None documented as of this encounter
--- OUTSIDE RECORDS SUMMARY | 2022-04-07 11:30 | XMS_ITS | Encounter Summary ---
:1990 Author Organization [facility] Address [address] [place] [address] Care Team Providers Name Role Phone Rigo Esteves MD Primary Care Provider Unavailable Encounter Details Date Type Department Care Team Description 10/25/2016 Hospital Encounter [facility]- [place] Unknown, Provider, Karthik Gtz MD [address] [place] [address] [place] [address] (Work) [phone] Social History Tobacco Use Types Packs/Day Years Used Date Never Assessed Sex Assigned at Date Recorded Not on file documented as of this encounter Discharge Disposition Disposition Code Departure Means Destination Auto Discharge Home documented in this encounter Plan of Treatment Not on filedocumented as of this encounter Visit Diagnoses Not on filedocumented in this encounter Care Teams Staffing Mgr Relationship Specialty Start Date End Date Rigo Esteves MD PCP - General 09/20/10 documented as of this encounter
--- OUTSIDE RECORDS SUMMARY | 2022-04-07 11:30 | XMS_ITS | Encounter Summary ---
:1990 Author Organization [facility] [place] [address] Care Team Providers Name Role Phone Krzysztof Estherleiseo Patel APRN Primary Care Provider Reason for Referral Diagnostic Test (Routine) - Closed Specialty Diagnoses / Procedures Referred By Contact Refer red To Contact Radiology Diagnoses Abdominal wall mass Endometriosis Jaya Garrett MD [facility] Rad Mri Procedures MRI Pelvis Soft Tissue(Gi Gu Client Relationship Executive)WWO Contrast MRI Pelvis Soft Tissue (Gi Gu Client Relationship Executive)WO Contrast [facility] OBSTETRICS [place] [address] [place] [address] Referral ID Status Reason Start Date Expiration Date Visits V isits Requested Authorized [id number] Closed Specialty 12/29/2016 03/29/2017 1 1 Service Requested Encounter Details Date Type Department Care Team Description 11/16/2016 Telephone Obstetrics and Gynecology at The Jaya mcallister MD [facility] [address] OBSTETRICS & [place] [address] [place] [address] [phone] (Wo rk) Social History Tobacco Use Types [...] this encounter Miscellaneous Notes Telephone Encounter - Jaya Garrett MD - 11/16/2016 3:23 PM EDT Called to discuss possible MRI. She is not interested in Lupron therapy at this time. Has another spot of probable endometriosis on R abdominal wall and wants imaging prior to any surgical intervention. Will schedule MRI and then f/u appt to discuss options. Telephone Encounter - Jaya Garrett MD - 11/16/2016 3:22 PM EDT ----- Message from Ingrid Ayoub sent at 11/16/2016 11:47 AM EDT ----- Sabrina Ann is calling because she wanted to talk with you about an MRI. You saw here this past October. Please call Sabrina at her home #. Maxi Mcmahon documented in this encounter Plan of Treatment Not on filedocumented as of this encounter Results MRI Pelvis Soft Tissue(Gi Gu Client Relationship Executive)WWO Contrast (01/02/2017 11:57 AM EDT) Anatomical Region [...] EDT EXAMINATION: MRI PELVIS SOFT TISSUE (GI ELECTRONICS TESTER) WWO CONTRAST CLINICAL HISTORY: abdominal wall mass, [...] original. EXAMINATION: MRI PELVIS SOFT TISSUE (GI ELECTRONICS TESTER) WWO CONTRAST CLINICAL HISTORY: abdominal wall mass, [...] mp, unspecified site Endometriosis Endometriosis, site unspecified Abdominal wall mass Abdominal or pelvic swelling, mass or mounika mp, unspecified site Endometriosis Endometriosis, site unspecified documented in this encounter Care Teams Bond Broker Relationship Specialty Start Date End Date Esther Blankenship APRN PCP - General Internal Medicine 10/21/[address] [place] [address] documented as of this encounter
--- OUTSIDE RECORDS SUMMARY | 2022-04-07 11:30 | XMS_ITS | Encounter Summary ---
:1990 Author Organization [facility] Address [address] [place] [address] Care Team Providers Name Role Phone Rigo Esteves MD Primary Care Provider Unavailable Encounter Details Date Type Department Care Team Description 01/22/2014 Results Only [facility] Srini Morales, DO [phone] [facility] [place], [place] [phone] (Wo rk) Social History Tobacco Use Types Packs/Day Years Used Date Never Assessed Sex Assigned at Date Recorded Not on file documented as of this encounter Plan of Treatment Not on filedocumented as of this encounter Procedures Procedure Name Priority Date/Time Associated Diagnosis Comme [facility] SURGICAL PATHOLOGY Routine 01/22/2014 22:18 Resul ts for this EDT procedure are i n the results section. documented in this encounter Results SURGICAL PATHOLOGY (01/22/2014 22:18 EDT) Pathology Report: SURGICAL PATHOLOGY REPORT [facility] Reports generated via electronic interface contain guero ginal data; LAB however they are lacking the format of the original re port. Caution should be taken when reading/interpreting unfo rmatted reports. Name: ? SABRINA STAUFFER EIGH ? Accession #: ? [id number] ? : ? 1990 (Age: 23) ??F ? Collect Date: ? 01/22/2014 ? Location: ? [facility] ? Receive Date: ? 014 ? Provider: SRINI MORALES DO Copy to: ? Final Pathologic Diagnosis: SOFT TISSUE, ANTERIOR ABDOMINAL WALL NODULE, BIOPSY: - ??Endometriosis. Document reviewed and electronically signed by: Mellisa Aguirre MD Report ??Date: 01/27/2014 15:05 By the signature above, the attending physician certif ies that he/she has personally conducted a gross and/or microscopic examin ation of the described specimens and rendered or confirmed the above diagnosi s. Specimen(s) Received: Anterior abdominal wall nodule Clinical History: Abdominal wall mass Gross Description: ? Received in formalin labelled with proper patient identification (initials M, J) and anterior abdominal wall nodul e is a yellow-resendiz firm nodular tissue (2.2 x 1.6 x 1.3 cm). ??Sect ioning discloses a firm white cut surface. ??Entirely submitted in [address] Villatoro 01/23/2014 12:07 PM End of Report Specimen Performing Organization Address City/State/ZIP Code Phon e Number [facility] [address] [place] [address] SERVICES [facility] [address] [place] [address] documented in this encounter Visit Diagnoses Not on filedocumented in this encounter Care Teams Alodize Machine Operator Relationship Specialty Start Date End Date Rigo Esteves MD PCP - General 09/20/10 documented as of this encounter
--- OUTSIDE RECORDS SUMMARY | 2022-04-07 11:30 | XMS_ITS | Encounter Summary ---
:1990 Author Organization [facility] [place] [address] Care Team Providers Name Role Phone Esther Blankenship APRN Primary Care Provider Encounter Details Date Type Department Care Team Description 11/03/2016 Telephone Obstetrics and Gynecology at The Jaya mcallister MD [facility] [address] OBSTETRICS & [place] [address] [place] [address] [phone] (Wo rk) Social History Tobacco Use Types [...] this encounter Miscellaneous Notes Telephone Encounter - Caterina Syed - 11/03/2016 3:16 PM EDT 11/03/16 called patient to schedule surgery with Dr. Garrett. Patient would like to speak to Dr. Garrett regarding some other symptoms and possibility of getting an MRI before scheduling surgery. I will ask Dr. Garrett to contact the patient. documented in this encounter Plan of Treatment Not on filedocumented as of this encounter Visit Diagnoses Not on filedocumented in this encounter Care Teams Freezing Room Worker Relationship Specialty Start Date End Date Esther Blankenship APRN PCP - General Internal Medicine 10/21/[address] [place] [address] documented as of this encounter
--- OUTSIDE RECORDS SUMMARY | 2022-04-07 11:30 | XMS_ITS | Encounter Summary ---
:1990 Author Organization [facility] Address [address] [place] [address] Care Team Providers Name Role Phone Rigo Esteves MD Primary Care Provider Unavailable Encounter Details Date Type Department Care Team Description 04/23/2018 Results Only [facility] Gregory Castro, [address] [place] [address] [place], [place] [phone] (Wo rk) Social History Tobacco Use Types Packs/Day Years Used Date Never Assessed Sex Assigned at Date Recorded Not on file documented as of this encounter Plan of Treatment Not on filedocumented as of this encounter Procedures Procedure Name Priority Date/Time Associated Diagnosis Comme [facility] SURGICAL PATHOLOGY Routine 04/23/2018 16:50 Resul ts for this EDT procedure are i n the results section. documented in this encounter Results SURGICAL PATHOLOGY (04/23/2018 16:50 EDT) Pathology Report: SURGICAL PATHOLOGY REPORT [facility] Reports generated via electronic interface contain guero ginal data; LABORATORY however they are lacking the format of the original re port. SERVICES Caution should be taken when reading/interpreting unfo rmatted reports. Name: ? SABRINA STAUFFER ? Accession #: ? [id number] ? : ? 1990 (Age: 27) ??F ? Collect Date: ? 04/23/2018 ? Location: ? [facility] ? Receive Date: ? 018 ? Provider: GREOGRY CASTRO MD Copy to: RICKIE PAYNE TAIL PULLER ? Final Pathologic Diagnosis: STOMACH, ANTRUM, BIOPSY: - Chronic Helicobacter pylori associated gastritis. Document reviewed and electronically signed by: CARINA GUPTA MD Report ??Date: 04/25/2018 17:24 By the signature above, the attending physician certif ies that he/she has personally conducted a gross and/or microscopic examin ation of the described specimens and rendered or confirmed the above diagnosi s. Specimen(s) Received: Bxs antrum Clinical History: Abdominal pain Gross Description: ? Received in formalin labelled with proper patient identification (initials M, J) and bx antrum are tw o fragments of resendiz-pink tissue measuring 0.3 cm and 0.5 cm in greatest dimension. The specimens are submit gloria entirely in 1. TAYLOR Suresh ([facility]) 04/23/2018 5:08 PM End of Report Specimen Performing Organization Address City/State/ZIP Code Phon e Number [facility] [address] [place] [address] SERVICES documented in this encounter Visit Diagnoses Not on filedocumented in this encounter Care Teams Heat And Frost Insulator Helper Relationship Specialty Start Date End Date Rigo Esteves MD PCP - General 09/20/10 documented as of this encounter
--- OUTSIDE RECORDS SUMMARY | 2022-04-07 11:30 | XMS_ITS | Encounter Summary ---
:1990 Author Organization [facility] Address [address] [place] [address] Care Team Providers Name Role Phone Unavailable Primary Care Provider Unavailable Encounter Details Date Type Department Care Team Description 09/15/2010 Results Only [facility] Kat Owens MD Laboratory Services - [address] [facility] [address] [place] [phone] (Wo rk) Social History Tobacco Use Types Packs/Day Years Used Date Never Assessed Sex Assigned at Date Recorded Not on file documented as of this encounter Plan of Treatment Not on filedocumented as of this encounter Procedures Procedure Name Priority Date/Time Associated Diagnosis Comme [facility] SURGICAL PATHOLOGY Routine 09/15/2010 0:00 EST Re sults for this procedure are i n the results section. documented in this encounter Results SURGICAL PATHOLOGY (09/15/2010 0:00 EST) Pathology Report: SURGICAL PATHOLOGY REPORT ? [facility] Reports generated via electr Mobile[employer] interface contain original data; ? LAB however they are lacking the format of the original report. ? Caution should be taken when reading/interpreting unformatted reports. ? Name: ? MASURE, SABRINA L EIGH ? Accession #: ? [id number] ? : ? 1990 (Age: 20) ??F ? Collec t Date: ? 09/15/2010 ? Location: ? [facility] ? R eceive Date: ? 09/15/2010 ? Provider: GAILYN B JIMBO MD ? Copy to: KELLE READY MD ? Final Pathologic Diagnosis: ? A. ?Fallopian t ube, left, excision: ? 1. ?Complete cr oss section is present. ? B. ?Fallopian t ube, right, excision: ? 1. ?Complete cr oss section is present. ? Document reviewed and electr onically signed by: ? BHAVANA RIVERO MD ? Report ??Date: 09/17/2010 15 :53 ? By the signature above, the attending physician certifies that he/she has ? personally conducted a gross and/or microscopic examination of the described ? specimens and rendered or co nfirmed the above diagnosis. ? Specimen(s) Received: ? A. ?Left tube p ortion ? B. ? Right tube portion ? Clinical History: ? Desired sterilization ? Gross Description: ? Received in formalin labelled Sabrina Sahni and left tube portion is a segment of smooth and gliste maira, resendiz-pink fallopian tube measuring 1.7 cm in ?? length and 0.7 cm in diamete r. ??Upon sectioning, the wall of the tube is ? resendiz-white and measures 0.2 c m in thickness. ??A central pinpoint lumen is ? present. ??Two representativ e cross sections are submitted as (A). ? Received in formalin reji d Sabrina Sahni and right tube portion is a ? resendiz-pink segment of smooth a nd glistening fallopian tube measuring 1.5 cm in ? length and 0.8 cm in diamete r. ??Upon sectioning, the wall is resendiz-white and ? measures 0.2 cm in thickness . ??A central pinpoint lumen is identified. ??Two ? sales representative rural power cross section s are submitted as (B). ??(Juan Puente/yasmine ? End of Report ? Specimen Performing Organization Address City/State/ZIP Code Phon e Number [facility] [address] [place] [address] SERVICES [facility] [address] [place] [address] documented in this encounter Visit Diagnoses Not on filedocumented in this encounter
--- OUTSIDE RECORDS SUMMARY | 2022-04-07 11:30 | XMS_ITS | Encounter Summary ---
:1990 Author Organization [facility] Address [address] [place] [address] Care Team Providers Name Role Phone Unavailable Primary Care Provider Unavailable Encounter Details Date Type Department Care Team Description 12/01/2006 Hospital Encounter [facility] - Soledad Glover , Other CNM [address] [place], [place] [id number] [place] [id number] Social History Tobacco Use Types Packs/Day Years Used Date Never Assessed Sex Assigned at Date Recorded Not on file documented as of this encounter Discharge Disposition Disposition Code Departure Means Destination Home-Health Care Svc documented in this encounter Plan of Treatment Not on filedocumented as of this encounter Procedures Procedure Name Priority Date/Time Associated Diagnosis Comme nts CYTOPATHOLOGY Routine 02/25/2009 0:00 EDT Results for this procedure are i n the results section . documented in this encounter Results CYTOPATHOLOGY (02/25/2009 0:00 EDT) Pathology Report: CYTOPATHOLOGY REPORT ? [facility] ? LAB Reports generated via [employer] interface contain original data; ? however they are lacking the format of the original report. ? Caution should be taken when reading/interpreting unformatted reports. ? Name: ? SABRINA STAUFFER SRAVANI ? Accession #: ? [id number] ? : ? 1990 (Age: 18) ??F ?Collect Date: ? 02/25/2009 ? Location: ? [facility] ? Receive Date: ? 02/26/2009 ? Provider: ?JACOBY M RO WLETT SOLVENT RECOVERER ? Copy to: ? Specimen/Source: ? Pap Test, Cervix/Endocervix, ThinPrep Imaging System ? with manual evaluation ? Last Menstrual Period: ? 7/25/09 ? Hormonal/Contraceptive Statu s: ? Intrauterine device: paragar d ? SPECIMEN ADEQUACY ? Satisfactory for Eval uation ? - transformation zone compon ent present ? GENERAL CATEGORIZATION ? Negative for Intraepi thelial Lesion or Malignancy ? Document reviewed and electr onically signed by: ? Soledad Wallace, SCT( ASCP) ? Report Date: ??08/25/ 2009 16:20 ? End of Report ? Specimen Performing Organization Address City/State/ZIP Code Phon e Number [facility] [address] [place] [address] [facility] [address] [place] [address] documented in this encounter Visit Diagnoses Not on filedocumented in this encounter
--- OUTSIDE RECORDS SUMMARY | 2022-04-07 11:30 | XMS_ITS | Encounter Summary ---
:1990 Author Organization [facility] Address [address] [place] [address] Care Team Providers Name Role Phone Rigo Esteves MD Primary Care Provider Unavailable Encounter Details Date Type Department Care Team Description 11/07/2011 Results Only [facility] Dedrick Ramesh, [facility] Laboratory Services - [address] [place], [place] [address] [facility] [address] [place] [address] [phone] Social History Tobacco Use Types Packs/Day Years Used Date Never Assessed Sex Assigned at Date Recorded Not on file documented as of this encounter Plan of Treatment Not on filedocumented as of this encounter Procedures Procedure Name Priority Date/Time Associated Diagnosis Comme nts PAP TEST- RESULT Routine 11/07/2011 0:00 EDT Resu lts for this ONLY procedure are i n the results section. documented in this encounter Results PAP TEST- RESULT ONLY (11/07/2011 0:00 EDT) Pathology Report: CYTOPATHOLOGY REPORT [facility] Reports generated via electronic interface contain guero ginal data; however they are lacking the format of the original re port. Caution should be taken when reading/interpreting unfo rmatted reports. Name: ? SABRINA STAUFFER ? Accession #: ? [id number] : ? 1990 (Age: 21) ??F ?Collect Date: ? 10/10 Location: ? [facility] ? Receive Date : ? 11/08/2011 Provider: ?ROB BYRON ADVERTISING DISPLAY ROTATOR Copy to: ?KELLE KEVIN MD ? Specimen/Source: ? Pap Test, Cervix/Endocervix, ThinPrep Imaging System with manual evaluation Last Menstrual Period: ? 10/18/11 Other: ? Additional clinical information: Paps 11/03/10 and 02/25 negative ? SPECIMEN ADEQUACY ? Satisfactory for Evaluation - transformation zone component present GENERAL CATEGORIZATION ? Negative for Intraepithelial Lesion or Malignan cy INTERPRETATION ? Fungal organisms pres ent morphologically consistent with Aide species. ? Document reviewed and electronically signed by: ? Soledad Wallace, SCT(ASCP) ? Report Date: ??11/10/2011 11:53 End of Report Specimen Performing Organization Address City/State/ZIP Code Phon e Number [facility] [address] [place] [address] [facility] [address] [place] [address] documented in this encounter Visit Diagnoses Not on filedocumented in this encounter Care Teams Head Loader Relationship Specialty Start Date End Date Rigo Esteves MD PCP - General 09/20/10 documented as of this encounter
--- OUTSIDE RECORDS SUMMARY | 2022-04-07 11:30 | XMS_ITS | Encounter Summary ---
:1990 Author Organization [facility] [place] [address] Care Team Providers Name Role Phone Esther Blankenship APRN Primary Care Provider Encounter Details Date Type Department Care Team Description 05/29/2020 Hospital [place] [address] Social History Tobacco Use Types Packs/Day Years [...] Name Priority Date/Time Associated Diagnosis Comme nts COVID-19 PCR Routine 05/29/2020 9:41 AM Results f or this EST procedure are i n the results section . documented in this encounter Results COVID-19 PCR (05/29/2020 9:41 AM EST) [facility] Method Time Signature SARS-CoV-2 Not Detected Not Detected [facility] Comment: This result should be interpreted in com bination with the clinical observations, patient history and epidem iological information in making a final diagnosis. For testing of asymptomatic i ndividuals, assay performance characteristics and clinical utility hav e not been evaluated. Testing for SARS-CoV-2 (Severe acute respiratory syn drome coronavirus 2, formerly known as 2019 novel coronavirus or 2019-nCoV) to aid in the diagnosis of COVID-19 is performed using the [employer] m ALEX S-CoV-2 Assay as authorized by the FDA Emergency Use Authorization (EUA). This EUA assay is intended for In-vitro Diagnostic (IVD) use with respiratory sp ecimens such as nasopharyngeal swabs collected from individuals during the ac [place] phase of infection. This assay is performed based on the instructions for use provided by [employer] and additional guidance provided by CDC and FDA. Testing is performed in the [facility] Laboratory within the Department of Pathology and Laboratory Medicine at [facility], certified under the Clinical Laboratory Improvement Amendments of 1988 (CLIA), 42 U.S.C. 263a, to perform high complexi ty tests. Assay performance has been verified according to clinical laborator y regulatory requirements for use with specimens collected from individuals catia pected of COVID-19. Test results are provided above. A result of ? Not Detected? indicates that the viral RNA target is not present above the limit of detect ion, but does not preclude SARS-CoV-2 infection. False negative results may oc cur if a specimen is improperly collected, transported or handled; if am plification inhibitors are present; or if inadequate numbers of viral particles are present in the specimen. When a diagnostic test is negative, the possibi lity of a false negative result should be considered in the context of a patien t? s recent exposures and the presence of clinical signs and symptoms consisten t with COVID-19. A result of ? Detected? indicates that RNA from SARS-CoV-2 was d etected and the patient is infected. As required or requested by public health a uthorities, positive specimens may be sent for additional testing. Positive an d negative predictive values for this test are highly dependent on disease pre valence. A result of ? Invalid? indicates that neither the viral RNA tar gets nor the internal control target was detected. An invalid result suggests the presence of inhibitors. Recollection and re-testing is recommend ed in the case of an invalid result. CDC COVID-19 criteria for testing on hum an specimens and clinical management guidance information are available at [facility] CDC Coronavirus Disease 2019 (COVID-19) webpage under ? Information for Healthcare Professionals? (https://www.cdc.gov/coronavirus/2019-nc ov/hcp/index.html) Additional information about this and ot her EUA tests can be found in provider and patient fact sheets at the following FDA website: https://www.fda.gov/medical-devices/ocdkmkrbtks-kxwxkfi-7074-vlwos-42-jmrlrsuah- gip-hzvnctcieyzucz-dsarmgi-devices/wxoew-kkdacijyqrb-dhic SARS-Cov-2 RNA Source Nasal [facility] Specimen Anatomical Collection Method Collection Time Receive d Time (Source) Location / / Volume Laterality Specimen from Other / Unknown 05/29/2020 9:41 AM 05/30 3:47 nose (specimen) EST AM EST Resulting Agency Comment Spec In Lab Shanita Horan MD MICROBIOLOGY - GENERAL ORDER MITALI Performing Organization Address City/State/[place] [address] documented in this encounter Visit Diagnoses Not on filedocumented in this encounter Care Teams Intern Retail Relationship Specialty Start Date End Date Esther Blankenship APRN PCP - General Internal Medicine 10/21/16 [facility] [place] [address] [place] [address] documented as of this encounter
--- OUTSIDE RECORDS SUMMARY | 2022-04-07 11:30 | XMS_ITS | Encounter Summary ---
:1990 Author Organization [facility] [place] [address] Care Team Providers Name Role Phone None Primary Care Provider Unavailable Reason for Visit Reason Comments Post Op Encounter Details Date Type Department Care Team Description 11/09/2015 Office Visit Obstetrics and Gynecology Oriana Nash [place] [address] [place] [address] [phone] Social History Tobacco Use Types Packs/Day Years [...] Sign Reading Time Taken Comments Blood Pressure 120/67 11/09/2015 1:27 PM EDT Pulse 73 11/09/2015 1:27 PM EDT Temperature 36.8 ??C (98.2 ??F) 11/09/2015 1:27 PM EDT Respiratory Rate 18 11/09/2015 1:27 PM EDT Oxygen Saturation - - Inhaled Oxygen Concentration - - Weight 76.5 kg (168 lb 11.2 oz) 11/09/2015 1:27 PM EDT Height - - Body Mass Index 27.65 10/09/2015 1:19 PM EDT documented in this encounter Progress Notes Jaya Riley MD - 11/18/2015 11:40 PM EDT Sabrina Sahni was discussed with me at the time of the visit or immediately after the visit. The assessment and plan were formulated in discussion with me and I agree with them as documented. I have reviewed the history, physical exam, assessment and plan with the resident. JAYA RILEY MD Oriana Bunch MD - 11/17/2015 4:20 AM EDT Department of Obstetrics [place] [address] Postoperative Clinic Visit Patient name: Sabrina Sahni Date of : 1990 Date of visit: 11/17/2015 Chief concern: postoperative assessment History of present illness: Sabrina Sahni is a 25 y.o. P2 female with a history of a painful mass at her Pfannenstiel incision site concerning for endometriosis implant who on 10/21/15 underwent excision of the above endometrial implant, exploratory laparoscopy, and Mirena IUD insertion. Procedure was uncomplicated. A 3 cm abdominal wall mass within the left rectus abdominus was consistent with endometriosis, with scant pelvic endometriosis on laparoscopy and otherwise normal anatomy. Postoperatively, patient reports she is sore but pain is improving. She is no longer using narcotic medications for pain control. Ambulating without difficulty, tolerating a regular diet, voiding spontaneously, and having regular bowel movements. Fatigue is improving. She has no incisional concerns. She is having light vaginal spotting with the Mirena in place. Review of systems: All systems reviewed and negative except as above in HPI. Problem list: Patient Active Problem List Diagnosis Code ??? Endometriosis N80.9 ??? Postural dizziness R42 ??? Abdominal wall mass R19.00 ??? Worsening headaches R51 Past surgical history: Past Surgical History Procedure Laterality Date ??? section x2 ??? Abdominal exploration surgery endometrioma removal ??? Sterilization ??? Pro lap, fulgurate/excise lesions N/A 10/21/2015 LAPAROSCOPY W/FULGURATION OR EXC LESION, OVARY, VISCERA OR PERITONEAL SURFACE performed by Jaya Riley MD at [facility] MAIN OR ??? Pro insert intrauterine device N/A 10/21/2015 INSERTION OF IUD, VAGINAL APPROACH performed by Jaya Riley MD at [facility] MAIN OR ??? Pro remove foreign body subq simple Left 10/21/2015 FOREIGN BODY REMOVAL,SIMPLE SUBCUTANEOUS, ABDOMEN performed by Jaya Riley MD at [facility] MAIN OR Medications: Medications 11/17/15 0420 Medication Sig Taking? ibuprofen (ADVIL;MOTRIN) 200 mg Tablet Take 3 tablets by mouth every 6 hours as needed for Pain. Yes Ranitidine HCl (ZANTAC) 300 mg Capsule Take 300 mg by mouth every evening. Yes ondansetron (ZOFRAN-ODT) 4 mg Tablet, Rapid Dissolve Take 1 tablet by mouth every 8 hours as needed for Nausea. Allergies: Allergies Allergen Reactions ??? Zoloft [Sertraline] Itching Physical exam: BP 120/67 mmHg Pulse 73 Temp(Src) 36.8 ??C (98.2 ??F) (Oral) Resp 18 Wt 76.522 kg (168 lb 11.2 oz) LMP 10/25/2015 General: Pleasant, well developed female. Skin: Warm and well-perfused. No rashes. CV: Normal rate, regular rhythm, normal S1 and S2. No murmurs / rubs / gallops. Resp: Clear to auscultation bilaterally. No wheezes or crackles. Abdomen: No masses or hepatosplenomegaly, soft, nontender, nondistended. Abdominal port site incisions and Pfannenstiel incision site well approximated and without erythema, edema, or drainage. Extremities: No calf tenderness or lower extremity edema. Neuro: CNII - XII grossly intact. Assessment: 25 y.o. P2 female who presents for postoperative assessment after removal of abdominal wall endometriosis implant, exploratory laparoscopy, and Mirena IUD insertion. Patient recovering wellwithout problems. She is counseled to return to her usual activities at 4 weeks postoperatively withweight restriction to continue until 6 weeks postoperatively. Expectations for vaginal bleeding pattern with Mirena in place reviewed. Plan: Return to clinic as needed for ongoing gynecologic care. The patient was discussed with Dr Riley, attending brass buffer, with whom the plan was formulated. ORIANA BUNCH MD, PGY2 11/09/2015 documented in this encounter Plan of Treatment Not on filedocumented as of this encounter Visit Diagnoses Diagnosis Endometriosis Endometriosis, site unspecified documented in this encounter Care Teams Sap Bpc Architect Relationship Specialty Start Date End Date None PCP - General 04/24/15 10/20/16 None documented as of this encounter
--- OUTSIDE RECORDS SUMMARY | 2022-04-07 11:30 | XMS_ITS | Clinical Summary ---
:1990 Author Organization [facility] [place] [address] Care Team Providers Name Role Phone Esther Blankenship APRN Primary Care Provider Allergies Active Allergy Reactions Severity Noted Date Comments Sertraline Itching 04/24/2015 Medications Medication Sig Dispensed Refills Start Date End Date Status Ranitidine HCl Take 300 mg by 0 Active (ZANTAC) 300 mg mouth every Capsule evening. Reported on 10/20/2016 ibuprofen Take 3 tablets by 30 tablet 0 10/21/2015 A ctive (ADVIL;MOTRIN) 200 mg mouth every 6 Tablet hours as needed for Pain. ondansetron Take 1 tablet by 20 tablet 1 10/24/2015 Active (ZOFRAN-ODT) 4 mg mouth every 8 Tablet, Rapid Dissolve hours as needed for Nausea. Additional Information Patient not taking. Reported on 10/20/2016 pantoprazole (PROTONIX) 40 Reported on 01/02/2017 0 0 10/05/2016 Active mg Tablet, Delayed Release (E.C.) dextroamphetamine-amphetamin Reported on 01/02/2017 0 09/22/2016 Active e (ADDERALL) 10 mg Tablet Biotin 5 mg Capsule Take by mouth. 0 Active albuterol (PROVENTIL Inhale 2 puffs into the 1 Inhaler 1 10/20 Active HFA;VENTOLIN HFA;PROAIR) 90 lungs every 4 hours as mcg/actuation HFA Aerosol needed for Wheezing. Use Inhaler with spacer buPROPion (WELLBUTRIN XL) take 1 tablet by mouth 0 0 12/28/2016 Active 300 mg Tablet Sustained daily every morning Release 24 hr levonorgestrel (MIRENA) 20 1 each by Intrauterine 0 Active mcg/24 hr (5 years) route once. Indications: IUDIndications: inserted inserted 10/2015 per 10/2015 per patient patient Active Problems Problem Noted Date Depression 01/02/2017 Overview: With anxiety, PTSD Reactive airway disease 10/20/2016 Worsening headaches 05/29/2015 Endometriosis 04/24/2015 Postural dizziness 04/24/2015 Abdominal wall mass 04/24/2015 Social History Tobacco Use Types Packs/Day Years [...] Assigned at Date Recorded Not on file Last Filed Vital Signs Vital Sign Reading [...] Mass Index 26.46 01/02/2017 12:58 PM EDT Plan of Treatment Health Maintenance Due Date Last Done Comments Covid-19 Vaccine (#1) 1994 Pneumococcal Vaccine: At-Risk 5-64yrs (1 - PCV) 1995 HIV screen 2007 Hepatitis C Screening 2007 Tdap adult 2008 Tetanus vaccine 2008 HPV test 2019 PAP Smear 2019 Influenza (Flu) vaccine (1 of 1 - Influenza standard 03/10/2022 series) Medical Devices Implanted Type Area Topographical Surveyor Device Shelf Model / Identifier Expiration Serial / Date Lot IudFern ([id number]) - [id number] IMPLANTS [employer] - 05/09/2018 [id number] / Implanted: Qty: 1 on 10/21/2015 by Cheryle Tyson MD at [facility] [id number] N/A / [id number] Insurance Payer Benefit Plan Subscriber ID Effective Dates Phone Address Type / Group [employer] [facility] [place] [facility] [id number] 2018-Sunday [phone] [address] [facility] [address] [place] [address] Advance Directives Latest Code Status on File Code Status Date Activated Date Inactivated Comments Full Code 10/21/2015 10:55 AM 10/21/2015 6:15 PM Does patient have capacity to make decision: Yes Care Teams Steam Shovel Engineer Relationship Specialty Start Date End Date Esther Blankenship APRN PCP - General Internal Medicine 10/21/16 [facility] [address] [place], [place] [address]
--- OUTSIDE RECORDS SUMMARY | 2022-04-07 11:30 | XMS_ITS | Encounter Summary ---
:1990 Author Organization [facility] Address [address] [place] [address] Care Team Providers Name Role Phone Unavailable Primary Care Provider Unavailable Encounter Details Date Type Department Care Team Description 10/18/2006 Results Only [facility] - Soledad Pierre CNM [facility] [address] [place] [phone] Social History Tobacco Use Types Packs/Day Years Used Date Never Assessed Sex Assigned at Date Recorded Not on file documented as of this encounter Plan of Treatment Not on filedocumented as of this encounter Procedures Procedure Name Priority Date/Time Associated Diagnosis Comme nts CYTOPATHOLOGY Routine 10/18/2006 0:00 EDT Results for this procedure are i n the results section . documented in this encounter Results CYTOPATHOLOGY (10/18/2006 0:00 EDT) Pathology Report: CYTOPATHOLOGY REPORT [facility] Reports generated via electronic interface contain guero ginal data; however they are lacking the format of the original re port. Caution should be taken when reading/interpreting unfo rmatted reports. Name: ? SABRINA STAUFFER ? Accession #: ? [id number] : ? 1990 (Age: 16) ??F ?Collect Date: ? 10/08 Location: ? [facility] ? Receive Date : ? 10/19/2006 Provider: ?SOLEDAD GORMAN CNM Copy to: ? Specimen/Source: ? ThinPrep Pap Test, Cervix/Endocervix, processed on [employer] ThinPrep Imaging System, with manual evaluation Last Menstrual Period: ? 08/14/06 Menstrual/ Status: ? Other: ? Additional clinical information: 1st pap smear HPVA - HPV testing requested if ASC-US on the current ThinPrep Pap test. ? SPECIMEN ADEQUACY ? Satisfactory for Evaluation - transformation zone component present GENERAL CATEGORIZATION ? Negative for Intraepithelial Lesion or Malignan cy ? Document reviewed and electronically signed by: ? ALANNA Vazquez(ASCP) ? Report Date: ??10/20/2006 11:44 End of Report Specimen Performing Organization Address City/State/ZIP Code Phon e Number [facility] [address] [place] [address] [facility] [address] [place] [address] documented in this encounter Visit Diagnoses Not on filedocumented in this encounter
--- OUTSIDE RECORDS SUMMARY | 2022-04-07 11:30 | XMS_ITS | Encounter Summary ---
:[address] [facility] Address [address] [place] [address] Care Team Providers Name Role Phone Rigo Esteves MD Primary Care Provider Unavailable Encounter Details Date Type Department Care Team Description 11/03/2010 Results Only [facility] Kat Owens MD Laboratory Services - [address] [place] [address] [address] [place] [phone] (Wo rk) Social History Tobacco Use Types Packs/Day Years Used Date Never Assessed Sex Assigned at Date Recorded Not on file documented as of this encounter Plan of Treatment Not on filedocumented as of this encounter Procedures Procedure Name Priority Date/Time Associated Diagnosis Comme nts PAP TEST- RESULT Routine 11/03/2010 0:00 EDT Resu lts for this ONLY procedure are i n the results section. documented in this encounter Results PAP TEST- RESULT ONLY (11/03/2010 0:00 EDT) Pathology Report: CYTOPATHOLOGY REPORT ? [facility] ? LAB Reports generated via electr onic interface contain original data; ? however they are lacking the format of the original report. ? Caution should be taken when reading/interpreting unformatted reports. ? Name: ? SABRINA STAUFFER ? Accession #: ? [id number] ? : ? 1990 (Age: 20) ??F ?Collect Date: ? 11/03/2010 ? Location: ? [facility] ? Receive Date: ? 11/04/2010 ? Provider: ?GAABHIN B T HOMAS MD ? Copy to: ? Specimen/Source: ? Pap Test, Cervix/Endocervix, ThinPrep Imaging System ? with manual evaluation ? Last Menstrual Period: ? Menstrual/ Status: ? Post ? SPECIMEN ADEQUACY ? Satisfactory for Eval uation ? - transformation zone compon ent present ? GENERAL CATEGORIZATION ? Negative for Intraepi thelial Lesion or Malignancy ? Document reviewed and electr onically signed by: ? Makeda Cormier, CT(A SCP) ? Report Date: ??05/02/ 2011 15:24 ? End of Report ? Specimen Performing Organization Address City/State/ZIP Code Phon e Number [facility] [address] [place] [address] [facility] [address] [place] [address] documented in this encounter Visit Diagnoses Not on filedocumented in this encounter Care Teams Relief Cook Relationship Specialty Start Date End Date Rigo Esteves MD PCP - General 09/20/10 documented as of this encounter
--- OUTSIDE RECORDS SUMMARY | 2022-04-07 11:30 | XMS_ITS | Encounter Summary ---
:1990 Author Organization [facility] Address [address] [place] [address] Care Team Providers Name Role Phone Unavailable Primary Care Provider Unavailable Encounter Details Date Type Department Care Team Description 11/22/2007 Results Only [facility] - Soledad Pierre CNM [facility] [address] [place] [id number] Social History Tobacco Use Types Packs/Day Years Used Date Never Assessed Sex Assigned at Date Recorded Not on file documented as of this encounter Plan of Treatment Not on filedocumented as of this encounter Procedures Procedure Name Priority Date/Time Associated Diagnosis Comme nts CYTOPATHOLOGY Routine 11/22/2007 0:00 EDT Results for this procedure are i n the results section . documented in this encounter Results CYTOPATHOLOGY (11/22/2007 0:00 EDT) Pathology Report: CYTOPATHOLOGY REPORT [facility] Reports generated via electronic interface contain guero ginal data; however they are lacking the format of the original re port. Caution should be taken when reading/interpreting unfo rmatted reports. Name: ? SABRINA STAUFFER ? Accession #: ? [id number] : ? 1990 (Age: 17) ??F ?Collect Date: ? 11/07 Location: ? [facility] ? Receive Date : ? 11/23/2007 Provider: ?SOLEDAD GORMAN CNM Copy to: ? Specimen/Source: ? ThinPrep Pap Test, Cervix/Endocervix, processed on iKONVERSE ThinPrep Imaging System, with manual evaluation Last Menstrual Period: ? 11/07/07 Hormonal/Contraceptive Status: ? Intrauterine device: Paraguard ? SPECIMEN ADEQUACY ? Satisfactory for Evaluation - transformation zone component present GENERAL CATEGORIZATION ? Negative for Intraepithelial Lesion or Malignan cy ? Document reviewed and electronically signed by: ? KSENIA Morales(ASCP) ? Report Date: ??11/27/2007 10:58 End of Report Specimen Performing Organization Address City/State/ZIP Code Phon e Number [facility] [address] [place] [address] SERVICES [facility] [address] [place] [address] documented in this encounter Visit Diagnoses Not on filedocumented in this encounter
--- OUTSIDE RECORDS SUMMARY | 2022-04-07 11:30 | XMS_ITS | Encounter Summary ---
:1990 Author Organization [facility] Address [address] [place] [address] Care Team Providers Name Role Phone Rigo Esteves MD Primary Care Provider Unavailable Encounter Details Date Type Department Care Team Description 08/08/2017 Results Only [facility] [place]- Mari Doherty MD [phone] [facility] [place] [address] (Wo rk) Social History Tobacco Use Types Packs/Day Years Used Date Never Assessed Sex Assigned at Date Recorded Not on file documented as of this encounter Plan of Treatment Not on filedocumented as of this encounter Procedures Procedure Name Priority Date/Time Associated Diagnosis Comme nts PAP TEST- RESULT Routine 08/08/2017 0:00 EST Resu lts for this ONLY procedure are i n the results section. documented in this encounter Results PAP TEST- RESULT ONLY (08/08/2017 0:00 EST) Pathology Report: CYTOPATHOLOGY REPORT [facility] Reports generated via electronic interface contain guero ginal data; SERVICES however they are lacking the format of the original re port. Caution should be taken when reading/interpreting unfo rmatted reports. Name: ? SABRINA STAUFFER ? Accession #: ? [id number] : ? 1990 (Age: 27) ??F ?Collect Date: ? 08/08 Location: ? [facility] ? Receive Date : ? 08/09/2017 Provider: ?MARI JEROME MD Copy to: ?RICKIE PAYNE RN ONCOLOGY ? Specimen/Source: ? Pap Test, Cervix, ThinPrep Imaging System with manual evaluation Last Menstrual Period: ? Hormonal/Contraceptive Status: ? Intrauterine device ? SPECIMEN ADEQUACY ? Satisfactory for Evaluation - transformation zone component present GENERAL CATEGORIZATION ? Negative for Intraepithelial Lesion or Malignan cy ? Document reviewed and electronically signed by: ? ALANNA Cummins(ASCP) ? Report Date: ??08/17/2017 10:36 End of Report Specimen Performing Organization Address City/State/ZIP Code Phon e Number [facility] [address] [place] [address] SERVICES documented in this encounter Visit Diagnoses Not on filedocumented in this encounter Care Teams Archery Instructor Relationship Specialty Start Date End Date Rigo Esteves MD PCP - General 09/20/10 documented as of this encounter
--- OUTSIDE RECORDS SUMMARY | 2022-04-07 11:31 | XMS_ITS | Encounter Summary ---
:1990 Author Organization [place] [id number] Care Team Providers Name Role Phone None Primary Care Provider Unavailable Reason for Visit Auth/Cert Specialty Diagnoses / Procedures Referred By Contact Refer red To Contact Diagnoses endometriosis, suspected abdominal endomtrial implant Procedures PRO LAP, FULGURATE/EXCISE LESIONS LAPAROSCOPY W/FULGURATION OR EXC LESION, OVARY, VISCERA OR PERITONEAL SURFACE Referral ID Status Reason Start Date Expiration Date Visits Requ ested Visits Authorized [id number] 1 1 Encounter Details Date Type Department Care Team Description 10/21/2015 Surgery Main Operating Room Ben Garrett MD [facility] W/FULGURATION OR EXC Hospital LESION, OVARY, VISCERA [facility] OBSTETRICS & OR PERITO NICCI SURFACE [facility] GYNECOLOGY (WRVU 12.15) [place] [address] [place] [address] [phone] (Wo rk) Social History Tobacco Use Types [...] Sign Reading Time Taken Comments Blood Pressure 120/56 10/21/2015 10:18 AM EDT Pulse 66 10/21/2015 10:18 AM EDT Temperature 36.7 ??C (98.1 ??F) 10/21/2015 10:18 AM EDT Respiratory Rate 16 10/21/2015 10:18 AM EDT Oxygen Saturation 98% 10/21/2015 10:18 AM EDT Inhaled Oxygen Concentration - - Weight - - Height - - Body Mass Index - - documented in this encounter Discharge Instructions Discharge InstructionsMakeda Reynoso RN - 10/21/2015 2:43 PM EDT Scopolamine Patch Discharge Instructions You are wearing a scopolamine patch. This is a medication patch used to prevent and treat nausea andvomiting after surgery. The patch is located: behind your right ear behind your left ear Please follow these instructions while you are wearing the patch. Try not to touch the patch. ??? If you do touch the patch, wash your hands right away. Make sure to remove all traces of medication from your hands. ??? If the medication gets on your hands and then you touch your eyes, your vision may become blurryor your pupils may widen. These are both normal and temporary reactions; they will go away shortly. Remove the patch on morning evening. ??? There will still be some active ingredients on the patch, so fold it in half (with the sticky sides together) and throw it in the trash. This will help prevent others from coming into contact with it. ??? After removing the patch, carefully wash your hands and behind your ear (or wherever the patch was placed) with soap and water. If you have not urinated in 6-8 hours after your surgery, remove the patch and call your surgeon. If you have any questions or concerns: Call the Same Day Program 8a-5pm Monday-Monday. All other times, call [phone] and ask for the anesthesiologist insulation worker apprentice. Narcotic bowel instructions 1. Drink plenty of fluid 2. Take with food or milk to help prevent nausea/vomiting 3. Get extra fiber in your diet 4. May need over the counter stool softner (colace 100mg twice per day) 5. If no bowel movement within 3 days, you may need to take a laxative POST ANESTHESIA INSTRUCTIONS Go home, rest, use caution on stairs. Change positions slowly. Do not smoke if you are alone. Diet light to regular as tolerated today. If nausea occurs start with clear liquids and progress slowly. No driving, operating machinery, alcoholic beverages and no important decisions for 24 hours. Monitor IV site for signs and symptoms of infection: increasing redness, swelling, foul drainage, ifoccurs contact M.D. Patients who have had endotrachial tubes (this tube, used by anesthesia department, is passed down your throat after you are asleep, to ensure safe air passage during your operation). A sore throat is normal due to the tube. Cold liquids or soothing lozenges will help ease the discomfort. The generalized muscle aches are due to the medication given to you just before the tube is inserted. As the medication wears off, you may develop muscle soreness, which usually goes away in 12-24 hours. Patient InstructionsTank Tyson MD - 10/21/2015 2:04 PM EDT Images from the original note were not included. Follow up appointments and recommendations: Someone from our office will call you within a week to set up a follow-up visit in 6 weeks. Patient Discharge Instructions: For problems or concerns related to this hospitalization call: [phone] weekdays, or [phone] weekends or nights. Call your doctor if you develop: --A fever over 101 degrees F --Severe pain -- Nausea / vomiting, diarrhea, intolerance of food or drink --Heavy vaginal bleeding, saturating 1+ heavy pad per hour --Urinary frequency, urgency, or feeling of incomplete emptying of the bladder --If your wound is red, hot, swollen, tender or draining yellow/green fluid Activity level: You should be able to resume your usual activities of daily living (eating, drinking, washing, walking.) No heavy lifting (nothing heavier than 8 lbs) for 6 weeks. Diet: Regular as tolerated, drink plenty of fluids. Shower/Bath: Showering is fine. Short baths are OK but you should avoid having any abdominal incision submerged for more than 10-15 minutes for the next 2 weeks. Wound Care: You have stitches just under the skin and these will dissolve on their own over the nextcouple of weeks. They do not need to be removed or altered. When showering rinse with water, do not use soap on the areas, and pat dry well. Your incisions are covered with skin glue which will peel away on its own. Pain medications include Ibuprofen, Tylenol and oxycodone ??? Please alternate Ibuprofen 600 mg every 6 hours with food with Tylenol 650 mg every 6 hours around the clock for the next several days and then after that use it only as needed. Drink plenty of fluids while you are home with this medication ??? Please use the oxycodone 5 mg every 4 hours as needed for pain that breaks through the Ibuprofen and Tylenol documented in this encounter Medications at Time of Discharge Medication Sig Dispensed Refills Start Date End Date ibuprofen (ADVIL;MOTRIN) Take 3 tablets by 30 tablet 0 10/08 200 mg Tablet mouth every 6 hours as needed for Pain. Ranitidine HCl (ZANTAC) Take 300 mg by 0 300 mg Capsule mouth every evening. Reported on 10/20/2016 acetaminophen (TYLENOL) Take 2 tablets by 30 tablet 0 10/2011/09/2015 325 mg Tablet mouth every 6 hours as needed for Pain. oxyCODONE (ROXICODONE) 5 Take 1 tablet by 25 tablet 0 10/2011/09/2015 mg Tablet mouth every 4 hours as needed for Pain. docusate sodium (COLACE) Take 1 capsule by 30 capsule 0 10/0811/09/2015 100 mg Capsule mouth 2 times daily. documented as of this encounter Progress Notes Makeda Reynoso RN - 10/21/2015 3:03 PM EDT 1406-report from surgical team; pt not required to void before going home documented in this encounter H&P Notes Oriana Bunch MD - 10/21/2015 10:50 AM EDT Certified Medical Coder Inpatient Admission Interval Note I have reviewed the pre-procedure H&P completed by Dr Garrett on 10/09/15. (x) Condition changed since H&P originally performed. See interval note below. Interval Note: S: Sabrina Sahni feels well today. No complaints / concerns. In the interval since her clinic visit, she developed a URI. Continues with sinus congestion, though most symptoms have resolved at this point. O: BP 120/56 mmHg Pulse 66 Temp(Src) 36.7 ??C (98.1 ??F) (Oral) Resp 16 SpO2 98% LMP 09/25/2015 (Exact Date) Gen: Sitting in bed, appears comfortable Abd: Palpable left lower quadrant abdominal wall nodule at Pfannenstiel site. Nontender. A/P: 25 y.o. female presents for planned excision of abdominal mass, diagnostic laparoscopy with possible fulguration of endometriosis, and Mirena IUD placement for recurrent abdominal wall endometriosis implant and pelvic pain. No interval changes in history or physical exam. Will proceed with planned procedure. ORIANA BUNCH MD, PGY4 10/21/2015 Associated attestation - Jaya Garrett MD - 10/21/2015 1:43 PM EDT I saw and evaluated Sabrina Sahni. I agree with the findings and the plan of care as documented inthe resident's note. JAYA GARRETT MD documented in this encounter Miscellaneous Notes Op Note - Jaya Garrett MD - 10/21/2015 2:40 PM EDT Operative Note Patient Name: Sabrina Sahni?: [id number]?MR#: [id number] Case Date: 10/21/2015 Surgeon: Surgeon(s) and Role: ? * Jaya Garrett MD - Primary ? * Oriana Bunch MD - Resident-Surgeon Chief ? * Tank Tyson MD - Resident-Surgeon Frank Preoperative diagnosis: endometriosis, suspected abdominal endomtrial implant Postoperative diagnosis: endometriosis, suspected abdominal endomtrial implant Procedure(s): LAPAROSCOPY W/FULGURATION OR EXC LESION, OVARY, VISCERA OR PERITONEAL SURFACE INSERTION OF IUD, VAGINAL APPROACH Removal of abdominal wall mass, endometrioma Anesthesia: general Findings: 3cm abdominal wall mass within left rectus abdominus muscle, adherent to fascia.?? Left uterosacral ligament implant of endometriosis.?? Normal uterus, ovaries.?? Tubes s/p tubal ligation Complications: none ? Fluids: 1400mL Estimated Blood Loss: 50 mL Drains:?? Disposition: awakened from anesthesia, extubated and taken to the recovery room in a stable condition, having suffered no apparent untoward event. Condition: doing well without problems HPI/Surgical Indications: Sabrina Sahni is a 25 y.o. female with a PMHx of endometriosis who presented with complaints of a painful palpable mass in the left side of her mini-laparotomy scar,which resulted from prior removal of an abdominal wall endometrial implant. Her pain was not adequately relieved with progestin-only pills and the patient desired surgical excision. The decision was made to proceed to the OR for a diagnostic laparoscopy, possible fulguration of endometriosis, excisionof abdominal wall mass, and Mirena IUD insertion for treatment of endometriosis pain. Pre-operative MRI was obtained revealing a 3 cm ill-defined vascularized mass within the left rectus abdominus muscle associated with the inferior epigastric vessels. Risks, benefits and alternatives were reviewed with the patient. Informed consent was obtained. Please see prior encounter notes for further details. Procedure Note: The patient was taken to the operating room with IV fluids running. General anesthesia was obtained without difficulty. She was positioned in dorsal lithotomy using Yellofin stirrups and prepared and draped in the usual sterile manner. Bimanual exam revealed a small retroverted uterus. Medina catheter was placed in the bladder. Weighted speculum and Maldonado retractor were placed in the vagina and the cervix identified. Single toothed tenaculum was placed on the anterior lip of the cervix. The uterus sounded to 9 cm. The cervix was then serially dilated to size 17F with Jaeger dilators. Kroner uterine manipulator was placed in the cervix and the tenaculum and specula removed. Attention was then turned to the laparoscopic portion of the procedure. Gloves were changed. Local anesthetic was infused into the umbilical fold. The umbilicus was then tented up with two Adson forceps and 5 mm vertical skin incision was made within the umbilical fold. Verres needle was carefully adva nced through the incision. Intra-peritoneal placement was confirmed with Weeks's water test and lowinitial insufflation pressure. The abdomen was insufflated with CO2 gas to a pressure of 15mmHg and the Verres was withdrawn. 5mm OptiView trochar was then carefully advanced through the umbilical incision while tenting up theabdominal wall. Intraperitoneal placement was confirmed with the laparoscope. Two lateral 5mm ports were then placed under direct vision after infiltration with local anesthetic. A thick omental adhesion to the midline anterior abdominal wall was partially dissected off with the Osiel grasper and then released using the laparoscopic scissors with concurrent monopolar cautery, allowing for improved visualization of the pelvis. Good views were obtained with findings as above. Laparoscopic scissors were used to excise an endometriotic implant on the left uterosacral ligament,with care to avoid the underlying ureter. The site was cauterized with monopolar cautery to achieve hemostasis. The pelvis was thoroughly irrigated. Laparoscopic instruments were then removed and pneumo peritoneum was released. The ports were removed from the abdomen. The port incisions were closed with 4-0 Monocryl in a subcuticular fashion. Attention was then turned to the abdominal wall mass. The site of the mass had previously been indicated by the patient and marked by the surgeon. The patient's previous mini-laparotomy scar was infiltrated with local anesthetic. A skin incision was made through the scar with a scalpel and carried through to the underlying layer of fascia with the Bovie. The fascia was opened with the Bovie. Palpation revealed a poorly-circumscribed, firm mass adherent to the fascia and involving the anterior aspectof the left rectus abdominus muscle. The fascial edges were grasped with Shannan clamps and elevated,and the mass dissected off the overlying fascia and surrounding rectus muscle with the Bovie. The left inferior epigastric artery was inadvertently transected during the dissection, grasped with a Hemostat and right angle clamp, then doubly suture ligated with 3-0 Vicryl, resulting in hemostasis. The dissection was continued with the Bovie until the mass was fully excised, then sent for frozen diagnosis. Slow oozing from the raw rectus muscle surfaces was noted. A laparotomy sponge was inserted intoapply pressure. While awaiting the frozen, the Kroner uterine manipulator was removed. Weighted speculum and Maldonado retractor were placed into the vagina. A single-toothed tenaculum was applied to the anterior lip of the cervix. The Mirena IUD was inserted to the uterine fundus without difficulty [facility]. The strings were cut to 4 cm and tucked into the vaginal fornix. The tenaculumwas removed and the puncture sites were hemostatic. All instruments were removed from the vagina. The laparotomy sponge was removed and the surgical bed inspected for hemostasis. The space was well irrigated and appeared dry. The frozen pathology returned benign, consistent with endometriosis. Bovie was used to cauterize the anterior aspect of the rectus muscle to ablate any residual endometriosis. The space was irrigated again. The fascia was reapproximated with 0-Vicryl in a running fashion. The subcuticular space was well irrigated. The subcutaneous tissue was loosely reapproximated with 2-0 plain gut suture. The skin was then closed with subcuticular 4-0 Monocryl. DermaBond was applied to this site and all port sites. The Medina catheter was removed. The patient was awakened from anesthesia. She tolerated the procedure well with no apparent complications. She returned to the recovery room in stable condition. Dr. Garrett was present for the entire procedure with no conflicting clinical responsibilities. TANK TYSON MD, PGY1 10/21/2015 I was present and participated during the entire procedure. JAYA GARRETT MD Brief Op Note - Jaya Garrett MD - 10/21/2015 1:43 PM EDT Brief Operative Note Patient Name: Sabrina Sahni : [id number] MR#: [id number] Case Date: 10/21/2015 Surgeon: Surgeon(s) and Role: * Jaya Garrett MD - Primary * Oriana Bunch MD - Resident-Surgeon Chief * Tank Tyson MD - Resident-Surgeon Frank Preoperative diagnosis: endometriosis, suspected abdominal endomtrial implant Postoperative diagnosis: endometriosis, suspected abdominal endomtrial implant Procedure(s): LAPAROSCOPY W/FULGURATION OR EXC LESION, OVARY, VISCERA OR PERITONEAL SURFACE INSERTION OF IUD, VAGINAL APPROACH FOREIGN BODY REMOVAL,SIMPLE SUBCUTANEOUS, ABDOMEN Anesthesia: general Findings: 3cm abdominal wall mass within left rectus abdominus muscle, adherent to fascia. Left uterosacral ligament implant of endometriosis. Normal uterus, ovaries. Tubes s/p tubal ligation Complications: none Fluids: 1400mL Estimated Blood Loss: 50 mL Drains: Disposition: awakened from anesthesia, extubated and taken to the recovery room in a stable condition, having suffered no apparent untoward event. Condition: doing well without problems Infection Bundle used? N/A Attestation: Case Date: 10/21/2015 I was present and I participated during the entire procedure (does not need to include opening and closing). (Please see the Surgical Encounter Summary for any Implant and Specimen details pertinent to this patient.) documented in this encounter Plan of Treatment Not on filedocumented as of this encounter Procedures Procedure Name Priority Date/Time Associated Comments Diagnosis SURGICAL PATHOLOGY Routine 10/21/2015 1:00 PM Res ults for this REPORT EDT procedure are i n the results section. SPECIMEN TO PATHOLOGY STAT 10/21/2015 1:00 PM Results for this EDT procedure are i n the results section. SURGICAL PATHOLOGY Routine 10/21/2015 12:33 Resul ts for this REPORT PM EDT procedure are i n the results section. SPECIMEN TO PATHOLOGY Routine 10/21/2015 12:33 Re sults for this PM EDT procedure are i n the results section. SPECIMEN TO PATHOLOGY Routine 10/21/2015 12:23 Re sults for this PM EDT procedure are i n the results section. FOREIGN BODY 10/21/2015 11:32 Endometriosis REMOVAL,SIMPLE AM EDT Abdominal wall mass SUBCUTANEOUS, ABDOMEN (WRVU 1.22) INSERTION OF IUD, 10/21/2015 11:32 Endometriosis VAGINAL APPROACH AM EDT Abdominal wall mass (WRVU 1.01) LAPAROSCOPY 10/21/2015 11:32 Endometriosis W/FULGURATION OR EXC AM EDT Abdominal wall mass LESION, OVARY, VISCERA OR PERITONEAL SURFACE (WRVU 12.15) INSERTION OF IUD, Routine 10/21/2015 9:52 AM Endometrios is VAGINAL APPROACH EDT Abdominal wall mass FOREIGN BODY Routine 10/21/2015 9:52 AM Endometriosis REMOVAL,SIMPLE EDT Abdominal wall mass SUBCUTANEOUS, ABDOMEN IMPLANTABLE DEVICES 10/21/2015 12:00 SCAN AM EDT documented in this encounter Results Surgical Pathology Report (10/21/2015 1:00 PM EDT) Component Value Ref Test Analysis Performed At [facility] Range Method Time Signature Surgical [id number] ? Location: OR [facility] Report The signing pathologist has (i) examined the relevant preparation(s) for the [facility] specimen(s) and (ii) rendered or confirmed the diagnosis(es) . HOSPITAL LABORATORY . ?Fro staci Section FROZEN SECTION DIAGNOSIS AFS - Abdominal wall mass: ?Endometriosis. - JLG 10/21/15 13:30 10/21/15 ??Verified by: ??Fausto MALDONADO, Jw Gee, Pathologist The attending pathologist whose electronic signature appea rs on this report has reviewed all diagnostic slides in rendering the frozen section diagnosis. This intraoperative consultation should be interpreted as a preliminary diagnosis pending review of the entire specimen and sp ecial studies, if any. Specimen (Source) Anatomical Collection Method Collection Time Re ceived Time Location / / Volume Laterality 10/21/2015 1:00 PM EDT Jaya Garrett MD PATHOLOGY/CYTOLOGY ORDERABLE S Performing Organization Address City/State/ZIP Code Phon e Number [place] [phone] [facility]ORY Drive Specimen to Pathology (surgical or derm) (10/21/2015 1:00 PM EDT) Specimen Anatomical Collection Method Collection Time Receive d Time (Source) Location / / Volume Laterality AP Specimen 10/21/2015 1:00 PM 6 1:00 EDT PM EDT Narrative [facility] - 10/21/2015 1:00 PM EDT Specimen requisition ordered. ??Separate Pathology report to follow Jaya Garrett MD PATHOLOGY/CYTOLOGY ORDERABLE S Performing Organization Address City/State/ZIP [place] [address] Surgical Pathology Report (10/21/2015 12:33 PM EDT) Component Value Ref Test Analysis Performed At [facility] gist Range Method Time Signature Surgical [id number] ? Location: [facility]; [facility]; A [facility] Report The signing pathologist has (i) examined the relevant preparation(s) for the [facility] specimen(s) and (ii) rendered or confirmed the diagnosis(es) . HOSPITAL LABORATORY . ?Surgic al Pathology DIAGNOSIS A - Abdominal wall mass, biopsy for frozen section: ?Fibromuscular connective tissue with foci of endometri osis. B - Left uterosacral biopsy: ?Fibroadipose tissue with the edge of a benign gland, ?consistent with focus of endometriosis. C - Peritoneum, biopsy: ?Scanty, crushed strand of fibrous connective tissue, ?focus of endometriosis not excluded. 10/23/15 ARS 10/23/15 Verified by: ? Nolan Lilly MD ?Pathologist ?(Electronic Signature ) The attending pathologist whose signature appears on this re port has reviewed all diagnostic slides and has edited the gross and/ or microscopic portion of the report in darshana dering the final pathologic diagnosis. CLINICAL INFORMATION Specimen Submitted: A - Abdominal wall mass for frozen section B - Left uterosacal biopsy C - Peritoneal biopsy Clinical History: Endometriosis, suspected abdominal endometrial implant Clinical Diagnosis: Same SPECIMEN PROCESSING A - ??Labeled/Fixative: Abdominal wall mass, fresh. Quantity/Size: Single, 3.1 x 2.6 x 1.1 cm. Tissue Description: Soft red -brown tissue with cautery along the periphery. ??The specimen is inked and seria lly sectioned. Sectioning reveals firm mixed white and yellow tissue. Sections/Processing: (1) fro staci section residue; (2, 3) indirect sales representative sections of mass (R3) B - ??Labeled/Fixative: Left uterosacral biopsy, fresh. Quantity/Size: Single, 0.7 x 0.2 x 0.1 cm. Tissue Description: Small fragment of red-pink soft tissue. Sections/Processing: ?? (T1) C - ??Labeled/Fixative: Peritoneal biopsy, fresh. Quantity/Size: Single, 1.6 x less than 0.1 x less than 0.1 c m. Tissue Description: The elongated strand of clear white firm tissue. Sections/Processing: ?? (T1) ??lnt . ?Fro staci Section FROZEN SECTION DIAGNOSIS AFS - Abdominal wall mass: ?Endometriosis. - JLG 10/21/15 13:30 10/21/15 ??Verified by: ??Fausto MALDONADO, Jw Gee, Pathologist The attending pathologist whose electronic signature appea rs on this report has reviewed all diagnostic slides in rendering the frozen section diagnosis. This intraoperative consultation should be interpreted as a preliminary diagnosis pending review of the entire specimen and sp ecial studies, if any. Specimen (Source) Anatomical Collection Method Collection Time Re ceived Time Location / / Volume Laterality 10/21/2015 12:33 PM EDT Jaya Garrett MD PATHOLOGY/CYTOLOGY ORDERABLE S Performing Organization Address City/State/ZIP Code Phon e Number [place] [phone] [facility]ITAL LAB[facility]ORY Drive Specimen to Pathology (surgical or derm) (10/21/2015 12:33 PM EDT) Specimen Anatomical Collection Method Collection Time Receive d Time (Source) Location / / Volume Laterality AP Specimen 10/21/2015 12:33 10/21/2015 PM EDT 12:33 PM EDT Narrative [facility] [place] - 10/21/2015 12:33 PM EDT Specimen requisition ordered. ??Separate Pathology report to follow Jaya Garrett MD PATHOLOGY/CYTOLOGY ORDERABLE S Performing Organization Address City/State/ZIP Code Phon e Number [address] Specimen to Pathology (surgical or derm) (10/21/2015 12:23 PM EDT) Specimen Anatomical Collection Method Collection Time Receive d Time (Source) Location / / Volume Laterality AP Specimen 10/21/2015 12:23 10/21/2015 PM EDT 12:23 PM EDT Narrative [facility] [place] - 10/21/2015 12:23 PM EDT Specimen requisition ordered. ??Separate Pathology report to follow Jaya Garrett MD PATHOLOGY/CYTOLOGY ORDERABLE S Performing Organization Address City/State/ZIP Code Phon e Number [address] SCAN DOC: IMPLANTABLE DEVICES (10/21/2015 12:00 AM EDT) Narrative This result has an attachment that is no t available. Scanning Provider MEDIA MGR SCAN EXT ORDR/RSLT documented in this encounter Visit Diagnoses Diagnosis Endometriosis Endometriosis, site unspecified Abdominal wall mass Abdominal or pelvic swelling, mass or mounika mp, unspecified site Endometriosis Endometriosis, site unspecified Abdominal wall mass Abdominal or pelvic swelling, mass or mounika mp, unspecified site documented in this encounter Administered Medications Inactive Administered Medications - up to 3 most recent administrations Medication Order MAR Action Action Date Dose Rate Site acetaminophen (TYLENOL) tablet Given 10/21/2015 10:51 AM EDT 1,0 00 mg 1,000 mg 1,000 mg, Oral, ONCE, 1 dose, On Mon10/21/15 at 1115, Day of Surgery (Day of Procedure), Routine BUpivacaine (PF) (MARCAINE) Given 10/21/2015 1:50 PM 17.5 mg 19- Surgical Site 0.25 % (2.5 mg/mL) injection EDT ONCE PRN, Starting on Mon10/21/15 at 1247, Until Mon10/21/15 at 1604, Intra-Operative (Intra-Procedure), Routine Given 10/21/2015 12:47 PM EDT 30 mg 19- Surgical Site HYDROmorphone (DILAUDID) syringe 0.2-0.4 mg Given 10/21/2015 2:58 PM EDT 0.2 mg 0.2-0.4 mg, Intravenous, EVERY 5 MIN PRN, Pain, Starting on Mon10/21/15 at 1408, Until Mon10/21/15 at 1604, For moderate pain (4-6) give: 0.2 mg every 5 minute prn For severe pain (7-10) give: 0.4 mg every 5 minutes prn Maximum dose: 4 mg per hour Hold for respiratory rate less than 10 per minute., PACU Recovery Given 10/21/2015 2:41 PM EDT 0.2 mg Given 10/21/2015 2:28 PM EDT 0.2 mg lactated ringers infusion 1,000 mL New Bag 10/21/2015 12:48 PM EDT 1,000 mL, at 100 mL/hr, Intravenous, CONTINUOUS, Starting on Mon10/21/15 at 1115, Until Mon10/21/15 at 1604, Day of Surgery (Day of Procedure) New Bag 10/21/2015 10:51 AM EDT 1,000 mLs 100 mL/hr lidocaine (XYLOCAINE) 10 mg/mL (1 %) injection Given 0 10/21/2015 10:43 AM EDT 3 mg 3 mg 3 mg (0.3 mL), Subcutaneous, ONCE PRN, 1 dose, Starting on Mon10/21/15 at 1047, Until Mon10/21/15 at 1043, for discomfort with PIV insertion, Day of Surgery (Day of Procedure), Routine ondansetron (ZOFRAN) injection 4 mg Given 10/21/2015 3:11 PM EDT 4 mg 4 mg, Intravenous, EVERY 30 MIN PRN, Starting on Mon10/21/15 at 1408, Until Mon10/21/15 at 1604, Nausea, May repeat 4 mg once in 30 minutes. If multiple antiemetics ordered, use ondansetron first and if ineffective use prochlorperazine second and if ineffective use promethazine, PACU Recovery promethazine (PHENERGAN) injection 12.5 mg Given 10/21/2015 2:26 PM EDT 5 mg 12.5 mg, Intravenous, EVERY 30 MIN PRN, 2 doses, Starting on Mon10/21/15 at 1408, Until Mon10/21/15 at 1604, Nausea, If multiple antiemetics ordered, use ondansetron first and if ineffective use prochlorperazine second and if ineffective use promethazine, PACU Recovery, Routine scopolamine Patch Applied 10/21/2015 10:51 AM 1 patch 0 1- Ear Behind (TRANSDERM-SCOP) 1.5 mg (1 EDT (Left) mg over 3 days) patch 1 patch 1 patch, Transdermal, ONCE, 1 dose, On Mon10/21/15 at 1115, Day of Surgery (Day of Procedure), Routine documented in this encounter Active and Recently Administered Medications Times are shown in EDT. Scheduled Medication Order 10/19/2015 10/20/2015 10/21/2015 acetaminophen (TYLENOL) tablet 1,000 mg (COMPLETED) 1051 (Given - Provider: Ellen Lawton RN) 1,000 mg, Oral, ONCE, 1 dose, Mon 6 at 1115, Day of Surgery (Day of Procedure), Routine scopolamine (TRANSDERM-SCOP) 1.5 mg (1 m g over 3 days) patch 1 patch (COMPLETED) 1051 (Patch Applied - Provider: Ellen Lawton RN) 1 patch, Transdermal, ONCE, 1 dose, Mon10/21/15 at 1115, Day of Surgery (Day of Procedure), Routine Continuous Medication Order 10/19/2015 10/20/2015 10/21/2015 lactated ringers infusion 1,000 mL (CANCELED) 1051 (New Bag - Provider: Ellen Lawton RN)1248 (New Bag - Provider: Marleen Santana CRNA)1346 (Anesthesia Volume Adjustment - Provider: Marleen Santana CRNA) 1,000 mL, at 100 mL/hr, Intravenous, CON TINUOUS, Starting Mon10/21/15 at 1115, Until Mon10/21/15 at 1604, Day of Surgery (Day of Procedure) PRN Medication Order 10/19/2015 10/20/2015 10/21/2015 BUpivacaine (PF) (MARCAINE) 0.25 % (2.5 mg/mL) injection (CANCEL ED) 1247 (Given - Provider: Tank Tyson MD - Comment: Abdomen)1350 (Given - Provider: Tank Tyson MD - Comment: Abdomen) ONCE PRN, Starting Mon10/21/15 at 1247, Until Mon10/21/15 at 1604, Intra- Operative (Intra-Procedure), Routine HYDROmorphone (DILAUDID) syringe 0.2-0.4 mg (CANCELED) 1428 (Given - Provider: Makeda Reynoso RN)1441 (Given - Provider: Makeda Reynoso RN)1458 (Given - Provider: Makeda Reynoso RN) 0.2-0.4 mg, Intravenous, EVERY 5 MIN PRN , Starting Mon10/21/15 at 1408, Until Mon10/21/15 at 1604, Pain, For moderate pain (4-6) give: 0.2 mg every 5 minute prn For severe pain (7-10) give: 0.4 mg every 5 minutes prn Maximum dose: 4 mg per ho ur Hold for respiratory rate less than 10 per minute., PACU Recovery, Routine lidocaine (XYLOCAINE) 10 mg/mL (1 %) injection 3 mg (COMPLETED) 1043 (Given - Provider: Ellen Lawton, CORI) 3 mg (0.3 mL), Subcutaneous, ONCE PRN, 1 dose, Starting Mon10/21/15 at 1047, Until Mon10/21/15 at 1043, for discomfort with PIV insertion, Day of Surgery (Day of Procedure), Routine ondansetron (ZOFRAN) injection 4 mg (CANCELED) 1511 (Given - Provider: Mildred Weeks RN) 4 mg, Intravenous, EVERY 30 MIN PRN, Sta rting Mon10/21/15 at 1408, Until Mon10/21/15 at 1604, Nausea, May repeat 4 mg once in 30 minutes. If multiple antiemetics ordered, use ondansetron first and if ineffective use prochlorperazine second and if ineffective use promethazine, PACU Recovery promethazine (PHENERGAN) injection 12.5 mg (CANCELED) 1426 (Given - Provider: Makeda Reynoso, RN) 12.5 mg, Intravenous, EVERY 30 MIN PRN, 2 doses, Starting 10/21/15 at 1408, Until Mon10/21/15 at 1604, Nausea, If multiple antiemetics ordered, use ondansetron first and if ineffective use prochlor perazine second and if ineffective use promethazine, PACU Recove ry, Routine documented in this encounter Care Teams Athletic Coach Relationship Specialty Start Date End Date None PCP - General 04/24/15 10/20/16 None documented as of this encounter
--- OUTSIDE RECORDS SUMMARY | 2022-04-07 11:31 | XMS_ITS | Encounter Summary ---
:1990 [place] [address] Care Team Providers Name Role Phone None Primary Care Provider Unavailable Encounter Details Date Type Department Care Team Description 05/29/2015 Laboratory Appointment Lab 3L [facility] [place] [address] Social History Tobacco Use Types Packs/Day Years Used Date Current Every Day Smoker 0.5 Sex Assigned at Date Recorded Not on file documented as of this encounter Plan of Treatment Not on filedocumented as of this encounter Procedures Procedure Name Priority Date/Time Associated Diagnosis Comme nts HEMOGRAM Routine 05/29/2015 12:32 PM Postural dizziness Re sults for this EST procedure are i n the results section. DIFFERENTIAL, Routine 05/29/2015 12:32 PM Postural dizziness R esults for this AUTOMATED EST procedure are i n the results section. CBC (WITH DIFF) Routine 05/29/2015 12:32 PM Postural dizziness EST documented in this encounter Results Differential, Automated (05/29/2015 12:32 PM EST) P athologist Signature Neutrophils % 49.5 % CERNER MILLENNIUM Neutr Abs (ANC) 2.92 1.50 - CERNER 6.30 MILLENNIUM x10(3)/mcL Lymphocytes % 38.8 % CERNER MILLENNIUM Lymphocytes Abs 2.3 1.0 - 3.6 CERNER x10(3)/mcL MILLENNIUM Monocytes % 9.7 % CERNER MILLENNIUM Monocyte Abs 0.6 0.2 - 1.0 CERNER x10(3)/mcL MILLENNIUM Eosinophils % 1.5 % CERNER MILLENNIUM Eosinophils Abs 0.1 0.0 - 0.5 CERNER x10(3)/mcL MILLENNIUM Basophils % 0.5 % CERNER MILLENNIUM Basophils Abs 0.0 0.0 - 0.2 CERNER x10(3)/mcL MILLENNIUM Immature Gran % 0.00 % CERNER MILLENNIUM Comment: Immature granulocytes(IG's)percentage an d absolute count will include metamyelocytes, myelocytes, and promyelo cytes. Blood smears from CBCs yielding IG's will be scanned manually for concor dance. If this scan disagrees with the automated IG or if promyelocytes are not ed, a manual differential will be performed. Kristi Gran Abs 0.00 0.00 - 0.05 x10(3)/mcL CER NER MILLENNIUM Specimen Anatomical Collection Method Collection Time Receive d Time (Source) Location / / Volume Laterality Blood specimen 05/29/2015 12:32 5 (specimen) PM EST 12:37 PM EST Resulting Agency Comment Spec In Lab J[facility] MD HEMATOLOGY ORDERABLES Performing Organization Address City/State/[place] [address] CERNER MILLENNIUM Hemogram (05/29/2015 12:32 PM EST) P athologist Signature WBC 5.9 4.0 - 10.0 CERNER x10(3)/mcL MILLENNIUM RBC 4.97 3.93 - 5.22 CERNER x10(6)/mcL MILLENNIUM Hemoglobin 13.4 11.2 - 15.7 CERNER gm/dL MILLENNIUM Hematocrit 40.5 34.0 - 45.0 CERNER % MILLENNIUM MCV 81.5 79.0 - 94.0 CERNER fL MILLENNIUM MCH 27.0 26.6 - 32.2 CERNER pg MILLENNIUM MCHC 33.1 32.0 - 36.5 CERNER gm/dL MILLENNIUM Platelets 195 145 - 370 CERNER x10(3)/mcL MILLENNIUM RDWSD 42.0 35.0 - 46.0 CERNER fL MILLENNIUM RDWCV 14.2 10.9 - 14.4 CERNER % MILLENNIUM MPV 10.6 9.0 - 12.0 [place] [facility] Specimen Anatomical Collection Method Collection Time Receive d Time (Source) Location / / Volume Laterality Blood specimen 05/29/2015 12:32 5 (specimen) PM EST 12:37 PM EST Resulting Agency Comment Spec In Lab Jaya Garrett MD HEMATOLOGY ORDERABLES Performing Organization Address City/State/[place] [address] [facility]YNTES[facility] documented in this encounter Visit Diagnoses Diagnosis Postural dizziness Dizziness and giddiness documented in this encounter Care Teams Combination Machine Tool Setter Relationship Specialty Start Date End Date None PCP - General 04/24/15 10/20/16 None documented as of this encounter
--- OUTSIDE RECORDS SUMMARY | 2022-04-07 11:31 | XMS_ITS | Encounter Summary ---
:1990 Author [place] [address] Care Team Providers Name Role Phone None Primary Care Provider Unavailable Reason for Visit Auth/Cert Specialty Diagnoses / Procedures Referred By Contact Refer red To Contact Diagnoses endometriosis, suspected abdominal endomtrial implant Procedures PRO LAP, FULGURATE/EXCISE LESIONS LAPAROSCOPY W/FULGURATION OR EXC LESION, OVARY, VISCERA OR PERITONEAL SURFACE Referral ID Status Reason Start Date Expiration Date Visits Requ ested Visits Authorized [id number] 1 1 Encounter Details Date Type Department Care Team Description 10/21/2015 Hospital Encounter Same Day Program at [facility] Endometriosis; Elen Chino MD Abdominal wall mass [facility] [address] [facility] & [place], [place] GYNECOLOGY [address] [place], [place] [phone] Social History Tobacco Use Types Packs/Day Years [...] Sign Reading Time Taken Comments Blood Pressure 115/70 10/21/2015 3:00 PM EDT Pulse 68 10/21/2015 2:06 PM EDT Temperature 36 ??C (96.8 ??F) 10/21/2015 2:06 PM EDT Respiratory Rate 16 10/21/2015 3:00 PM EDT Oxygen Saturation 97% 10/21/2015 3:00 PM EDT Inhaled Oxygen Concentration - - [...] Program 8a-5pm Monday-Monday. All other times, call [phone] and ask for the anesthesiologist electronic plotting system operator. Narcotic bowel instructions 1. Drink plenty of [...] usually goes away in 12-24 hours. Patient InstructionsYTank arenas MD - 10/21/2015 2:04 PM EDT Images from the original note were not included. Follow up appointments and recommendations: Someone from our office will call you within a week to set up a follow-up visit in 6 weeks. Patient Discharge Instructions: For problems or concerns related to this hospitalization call: [phone] weekdays, or [phone] weekends or nights. Call your doctor if [...] Bunch MD - 10/21/2015 10:50 AM EDT Frozen Food Department Manager Inpatient Admission Interval Note I have reviewed [...] physical exam. Will proceed with planned procedure. ORINAA BUNCH MD, PGY4 10/21/2015 Associated attestation - Jaya Garrett MD - 10/21/2015 1:43 PM EDT I saw and evaluated Sabrina Sahni. I agree with the findings and the plan of care as documented inthe resident's note. JAYA GARRETT MD documented in this encounter Miscellaneous Notes Op Note - Jaya Garrett MD - 10/21/2015 2:40 PM EDT Operative Note Patient Name: Sabrina Sahni?: [id number]?MR#: [id number] Case Date: 10/21/2015 Surgeon: Surgeon(s) and Role: [...] uterine fundus without difficulty [facility]. The strings were cut [...] Operative Note Patient Name: Sabrina Sahni : [id number] MR#: [id number] Case Date: 10/21/2015 Surgeon: Surgeon(s) and Role: [...] Component Value Ref Test Analysis Performed At [facility] Method Time Signature Surgical [id number] ? Location: OR [facility] The signing pathologist has (i) examined the [...] Organization Address City/State/[place] [address] Specimen to Pathology (surgical or derm) (10/21/2015 1:00 PM EDT) Specimen Anatomical Collection Method Collection Time Receive d Time (Source) Location / / Volume Laterality AP Specimen 10/21/2015 1:00 PM 6 1:00 EDT PM EDT Narrative [facility] - 10/21/2015 1:00 PM EDT Specimen requisition ordered. ??Separate Pathology report to follow Jaya Garrett MD PATHOLOGY/CYTOLOGY ORDERABLE S Performing Organization Address City/State/ZIP [place] [address] Surgical Pathology Report (10/21/2015 12:33 PM EDT) Component Value Ref Test Analysis Performed At [facility] gist Range Method Time Signature Surgical [id number] ? Location: [facility]; A [facility] Report The signing pathologist has (i) examined the relevant preparation(s) for the [facility] specimen(s) and (ii) rendered or confirmed [...] excluded. 10/23/15 ARS 10/23/15 Verified by: ? Maxx MALDONADO, Nolan Patel ?Pathologist ?(Electronic Signature ) The attending pathologist [...] (1) fro staci section residue; (2, 3) solar sales representative and assessor sections of mass (R3) B - ??Labeled/Fixative: [...] Organization Address City/State/[place] [address] Specimen to Pathology (surgical or derm) (10/21/2015 12:33 PM EDT) Specimen Anatomical Collection Method Collection Time Receive d Time (Source) Location / / Volume Laterality AP Specimen 10/21/2015 12:33 10/21/2015 PM EDT 12:33 PM EDT Narrative [facility] [place] 10/21/2015 12:33 PM EDT Specimen requisition ordered. ??Separate Pathology report to follow Jaya Garrett MD PATHOLOGY/CYTOLOGY ORDERABLE S Performing Organization Address City/State/ZIP Code Phon e Number [address] Specimen to Pathology (surgical or derm) (10/21/2015 12:23 PM EDT) Specimen Anatomical Collection Method Collection Time Receive d Time (Source) Location / / Volume Laterality AP Specimen 10/21/2015 12:23 10/21/2015 PM EDT 12:23 PM EDT Narrative [facility] [place] 10/21/2015 12:23 PM EDT Specimen requisition ordered. ??Separate Pathology report to follow Jaya Garrett MD PATHOLOGY/CYTOLOGY ORDERABLE S Performing Organization Address City/State/[place]IP [place] [address] SCAN DOC: IMPLANTABLE DEVICES (10/21/2015 [...] Day of Surgery (Day of Procedure), Routine HYDROmorphone (DILAUDID) syringe 0.2-0.4 mg Given 10/21/2015 [...] mg (COMPLETED) 1051 (Given - Provider: Ellen Lawton, RN) 1,000 mg, Oral, ONCE, 1 dose, [...] mg (CANCELED) 1428 (Given - Provider: Makeda Reynoso, CORI)1441 (Given - Provider: Makeda Reynoso, CORI)1458 (Given - Provider: Makeda Reynoso RN) 0.2-0.4 [...] mg (COMPLETED) 1043 (Given - Provider: Ellen Lawton RN) 3 mg (0.3 mL), Subcutaneous, ONCE PRN, [...] (CANCELED) 1426 (Given - Provider: Makeda Reynoso, CORI) 12.5 mg, Intravenous, EVERY 30 MIN PRN, 2 doses, Starting Mon10/21/15 at 1408, Until Mon10/21/15 at 1604, Nausea, If multiple antiemetics ordered, use ondansetron first and if ineffective use prochlor perazine second and if ineffective use promethazine, PACU Recove ry, Routine documented in this encounter Care Teams Barkeeper Relationship Specialty Start Date End Date None PCP - General 04/24/15 10/20/16 None documented as of this encounter
--- OUTSIDE RECORDS SUMMARY | 2022-04-07 11:31 | XMS_ITS | Encounter Summary ---
:1990 Author Organization [facility] [place] [address] Care Team Providers Name Role Phone None Primary Care Provider Unavailable Encounter Details Date Type Department Care Team Description 10/24/2015 Telephone Obstetrics and Gynecology Adams Olivo MD at [facility] OBSTETRICS & [place] [address] [place] [address] [phone] (Wo rk) Social History Tobacco Use Types [...] this encounter Miscellaneous Notes Telephone Encounter - Adams Olivo MD - 10/24/2015 11:41 AM EDT Sabrina Sahni is a 25 y.o. who is POD#3 from laparoscopic fulgaration of endometriosis and IUD placement along with removal of abdominal wall mass calling with left incisional pain. She has been taking tylenol 500 mg q 6 hour, 600 mg ibuprofen and oxycodone 5 mg every 6 hours she gets good relief for 1 hour then pain continues. Denies drainage or erythema, fever, chills, nausea or vomiting. Reportsbruising. Tolerating a regular diet. Ambulating and voiding. Recommended increasing oxycodone to every 3-4 hours along with heating pad. Patient agrees Patient called again at 15:00 complaining of nausea with medications. Requested Zofran. RX sent. ADAMS OLIVO MD 10/24/2015 documented in this encounter Plan of Treatment Not on filedocumented as of this encounter Visit Diagnoses Not on filedocumented in this encounter Care Teams Director Dance Relationship Specialty Start Date End Date None PCP - General 04/24/15 10/20/16 None documented as of this encounter
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
--- OUTSIDE RECORDS SUMMARY | 2022-04-07 11:31 | XMS_ITS | Encounter Summary ---
:1990 [place] [address] Care Team Providers Name Role Phone Unavailable Primary Care Provider Unavailable Encounter Details Date Type Department Care Team Description 08/01/2013 Hospital Encounter Radiology Library at Eric Correa Pain [facility] [place] [address] [place] [address] [place] [id number] (Wo rk) Social History Tobacco Use Types Packs/Day Years Used Date Never Assessed Sex Assigned at Date Recorded Not on file documented as of this encounter Plan of Treatment Not on filedocumented as of this encounter Procedures Procedure Name Priority Date/Time Associated Diagnosis Comme nts FILM LIBRARY Routine 08/01/2013 12:00 AM Pain Results for this STORAGE ONLY DX EST procedure ar e in KNEE the results section. documented in this encounter Results Film Library- Storage Only DX Knee (08/01/2013 12:00 AM EST) Specimen (Source) Anatomical Location Collection Method / Collectio n Time Received Time / Laterality Volume Narrative RAD - 10/26/2016 4:16 PM EDT This exam is for storage only and is aut o-finalizing. Emily Correa MD [facility] [place] FILM LIBRARY ORDERABLES Performing Organization Address City/State/ZIP Code Phon e Number [place], [place] documented in this encounter Visit Diagnoses Diagnosis Pain Generalized pain documented in this encounter
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
--- OUTSIDE RECORDS SUMMARY | 2022-04-07 11:31 | XMS_ITS | Encounter Summary ---
:1990 [place] [address] Care Team Providers Name Role Phone None Primary Care Provider Unavailable Reason for Visit Reason Onset Date Comments Bleeding/Bruising 10/28/2015 Encounter Details Date Type Department Care Team Description 10/28/2015 Telephone Obstetrics and Gynecology at [facility] [place] Bleeding/[place] [address] Social History Tobacco Use Types Packs/Day Years [...] this encounter Miscellaneous Notes Telephone Encounter - Eve Fox RN - 10/28/2015 8:27 AM EDT Caller: patient Learning Needs Assessment Reviewed: Yes Subjective Patient presents with: Bleeding/Bruising Objective/Assessment Symptom onset: 10/21/2015 Location: lower abdominal, upper pubic area Duration: since surgery Characteristics: bruising Aggravating factors: n/a Relieving factors: n/a Timing: since onset Severity: mild Pertinent Past Medical History: surgery 10/21/2015 Plan Intervention/Plan/ Follow Up: patient calls with reports of bruising in lower abdominal upper pubic region, patient wondering if this is normal. Reports I shaved today and noticed that the bruising islower, wondering if this is normal. Informed patient that this is normal after surgery and to monitor, if symptoms do not appear to improve to call clinic to let us know. Patient also inquiring about IUD and what to watch for. Instructed patient on bleeding precautions and symptoms of the IUD moving. Patient understanding and in agreement with plan, will call with further questions or concerns. Telephone Encounter - Eve Fox RN - 10/28/2015 8:26 AM EDT ----- Message from Elen Jasso sent at 10/28/2015 8:03 AM EDT ----- Contact: patient She recently had surgery for an endometrioma removal with Dr Garrett. She has her post op on 11/[address] Ragland. She also has an IUD. She noticed last night that she has visible bruising and soreness in her pubic area. She does not know if this is normal or not. She can be reached at [phone]. Thanks, Elen documented in this encounter Plan of Treatment Not on filedocumented as of this encounter Visit Diagnoses Not on filedocumented in this encounter Care Teams Aws Solution Architect Relationship Specialty Start Date End Date None PCP - General 04/24/15 10/20/16 None documented as of this encounter
--- OUTSIDE RECORDS SUMMARY | 2022-04-07 11:31 | XMS_ITS | Encounter Summary ---
:1990 Author Organization [facility] [place] [address] Care Team Providers Name Role Phone None Primary Care Provider Unavailable Encounter Details Date Type Department Care Team Description 10/21/2015 Telephone Obstetrics and Gynecology Jon Mathis MD at [facility] [address] OBSTETRICS & [place] [address] DEPT [phone] [place], [place] [address] (Wo rk) Social History Tobacco Use Types [...] this encounter Miscellaneous Notes Telephone Encounter - Jon Mathis MD - 10/21/2015 6:28 AM EDT Calling due to headache and congestion. Able to tolerate headache but wondering if she can take DayQuil for congestion. Procedure at 0930. Recommended holding off on taking medication prior to her procedure. documented in this encounter Plan of Treatment Not on filedocumented as of this encounter Visit Diagnoses Not on filedocumented in this encounter Care Teams Dry Wall Installations Mechanic Relationship Specialty Start Date End Date None PCP - General 04/24/15 10/20/16 None documented as of this encounter
--- OUTSIDE RECORDS SUMMARY | 2022-04-07 11:31 | XMS_ITS | Encounter Summary ---
:1990 Author Organization [facility] [place] [address] Care Team Providers Name Role Phone None Primary Care Provider Unavailable Encounter Details Date Type Department Care Team Description 10/10/2015 Telephone Obstetrics and Gynecology Carlotta Fowler MD at [facility] [address] OBSTETRICS & [place] [address] DEPT [phone] [place], [place] [address] (Wo rk) Social History Tobacco [...] this encounter Miscellaneous Notes Telephone Encounter - Carlotta Fowler MD - 10/10/2015 10:39 AM EDT Sabrina calls to ask what she can take for headache as she has surgery upcoming on 10/21/15. Reviewed that she can try Tylenol 1000 mg Q8h. She should not take ibuprofen (Advil, Motrin) or aspirin. She is in agreement. documented in this encounter Plan of Treatment Not on filedocumented as of this encounter Visit Diagnoses Not on filedocumented in this encounter Care Teams Hide Dyer Relationship Specialty Start Date End Date None PCP - General 04/24/15 10/20/16 None documented as of this encounter
--- OUTSIDE RECORDS SUMMARY | 2022-04-07 11:31 | XMS_ITS | Encounter Summary ---
:1990 [place] [address] Care Team Providers Name Role Phone None Primary Care Provider Unavailable Reason for Visit Auth/Cert Specialty Diagnoses / Procedures Referred By Contact Refer red To Contact Diagnoses endometriosis, suspected abdominal endomtrial implant Procedures PRO LAP, FULGURATE/EXCISE LESIONS LAPAROSCOPY W/FULGURATION OR EXC LESION, OVARY, VISCERA OR PERITONEAL SURFACE Referral ID Status Reason Start Date Expiration Date Visits Requ ested Visits Authorized [id number] 1 1 Encounter Details Date Type Department Care Team Description 10/21/2015 Anesthesia Event Main Operating Room Ivonne Calvo MD [facility] [place] [address] [facility] Marleen Emanuel CRNA [facility] [place] [place] [address] [facility] [place] [address] Anesthesia Record Procedure Summary Procedure Name Responsible Anesthesia Start Anesthesia Stop Anesthesiologist Time Time LAPAROSCOPY Ivonne Beyer MD 10/21/15 1129 10/21/15 141 2 W/FULGURATION OR EXC LESION, OVARY, VISCERA OR PERITONEAL SURFACE (WRVU 12.15) (N/A ) Events Date Time Event Comment 10/21/2015 1043 1129 AN Verify 1129 Start 1132 An Start Data 1138 An Induction 1143 An Intubation 1144 Anesthesia Ready 1152 Break/Relief In IVONNE BEYER MD 1205 Procedure Start 1228 Break/Relief Out 1359 Extubation/LMA Out 1400 an stop data 1411 Recovery or ICU Handoff Patient care was transferred to the destination unit staff after review of the patient's medica l history, current anesthetic/surgi burt status and plan, according to the Provider Handoff Checklist. 1412 Stop Name Total Midazolam 2 mg fentaNYL 100 mcg IV Lidocaine 80 mg Propofol 200 mg Rocuronium 90 mg Ondansetron 4 mg Dexamethasone 4 mg Neostigmine 2 mg Glycopyrrolate 0.2 mg Magnesium Sulfate 2 g HYDROmorphone 1 mg Ketorolac 15 mg lactated ringers infusion 1,000 mL 1,400 mL Agents Name O2 Air N2O Sevoflurane (et) Blood No blood administrations on file. Lines, Drains, and Airways Type Details Placement Removal Incision 10/21/15; abdomen; 10/21/15 0000 by 03/07/22 171 5 by laparoscopic puncture; Jon Morse RN Mulle r, Dierdre L port sites x3; 03/07/22 (LDA cleanup utility RA#[id number]); 1715 (LDA cleanup utility RA#[id number]) Incision 10/21/15; abdomen; 10/21/15 0000 by 03/07/22 171 5 by horizontal; 03/07/22 (LDA Yoanna Camarillo, Dimas Hooks cleanup utility RA#[id number]); 1715 (LDA cleanup utility RA#[id number]) PIV 10/21/15; 1045; median 10/21/15 1045 by 10/21/15 1605 by vein left (underside of Ellen Lawton RN Lynd e, Della R, RN arm); [id number] catheter system; 20 gauge; distraction, intradermal injection, tolerated well; 1; metacarpal vein (top of hand), left; 10/21/15; 1605 ETT Mask Ventilation: Easy 10/21/15 1143 by 10/21/15 1359 by (1); ETT Type: Cuffed; Marleen Emanuel CRNA Tayl or, Katy A, CRNA ETT Size: 7 mm; Mac Blade: 3; Attempts: 1; Laryngoscopy Grade: 1; ETT Placement Verified By: Auscultation, Capnometry, Visual; Secured at Teeth: 21 cm; Inserted by: Dipti Pineda MD ED resident Urethral Catheter 10/21/15; 1216; Abdominal 10/21/15 1216 by 1345 by surgery; latex; 14; Jon Morse, Yoanna Gonsales, inserted at this RN facility; 1; 10; 10; 10/21/15; 1345 documented in this encounter Social History Tobacco Use Types Packs/Day Years [...] on file documented as of this encounter OR Notes Anesthesia Postprocedure Evaluation - Ivonne Beyer MD - 10/21/2015 4:00 PM EDT [facility] Department of Anesthesiology Post-procedure Note Patient: Sabrina Sahni Procedure Summary Date Anesthesia Start Anesthesia Stop Room / Location 10/21/15 1129 1412 [facility] OR 27 / [facility] MAIN OR Procedure Diagnosis Surgeon Responsible Provider LAPAROSCOPY W/FULGURATION OR EXC LESION, OVARY, VISCERA OR PERITONEAL SURFACE (N/A ); INSERTION OF IUD, VAGINAL APPROACH (N/A Uterus); FOREIGN BODY REMOVAL,SIMPLE SUBCUTANEOUS, ABDOMEN (Left Abdomen) Endometriosis; Abdominal wall mass (endometriosis, suspected abdominal endomtrial implant) Jaya Garrett MD Pouliot, Ryan C, MD All Anesthesia Providers: Anesthesiologist: Ivonne Beyer MD BOOK AUTHOR: Marleen Santana CRNA Last (1hr) Vitals: BP Temp Pulse Resp SpO2 Patient Location: PACU/SD Level of Consciousness: Awake and Alert Pain Management: Pain Being Addressed PONV: PONV Resolved with Rx Cardiovascular Status: Hemodynamically Stable and At Baseline Respiratory Status: At Baseline Postoperative Fluid Status: Intravascular EUvolemia Possible Anesthetic Complications: NONE apparent at time of evaluation Final Primary Anesthesia Type: General (The anesthetic type performed was the same as planned.) Comments: Anesthesia Preprocedure Evaluation - Ivonne Beyer MD - 10/21/2015 10:09 AM EDT Pre-Anesthesia Evaluation for: Sabrina Sahni a 25 y.o. female. Procedure(s): LAPAROSCOPY W/FULGURATION OR EXC LESION, OVARY, VISCERA OR PERITONEAL SURFACE INSERTION OF IUD, VAGINAL APPROACH FOREIGN BODY REMOVAL,SIMPLE SUBCUTANEOUS, ABDOMEN Patient Active Problem List Diagnosis ??? Worsening headaches ??? Endometriosis ??? Postural dizziness ??? Abdominal wall mass Past Medical History Diagnosis Date ??? PMDD (premenstrual dysphoric disorder) ??? Headache(784.0) Past Surgical History Procedure Laterality Date ??? section x2 ??? Abdominal exploration surgery endometrioma removal ??? Sterilization History Substance Use Topics ??? Smoking status: Current Every Day Smoker -- 0.50 packs/day ??? Smokeless tobacco: Never Used ??? Alcohol Use: Yes Comment: seldom History Drug Use No Allergies Allergen Reactions ??? Zoloft [Sertraline] Itching Medications: MAR and/or home medications have been reviewed. Physical Exam: There were no vitals filed for this visit. There is no weight on file to calculate BMI. Airway Assessment: Mallampati: I TM distance: >3 FB Neck ROM: full Cardiovascular Assessment: Pulmonary Assessment: Dental Assessment: - normal exam Misc Assessment: IV access: Peripheral line Anesthesia Plan: ASA 2 General, with a(n) intravenous induction 25 y/o woman with a PMH of GERD, depression and endometriosis who presents for laparoscopy for endometriosis and abdominal mass. Good functional status. No problems with GA in the past. GERD well controlled on H2B. Denied cardiacor pulmonary disease. Did report URI that developed a few days ago with nasal congestion, mild sore throat. No fevers or productive cough. Plan for GA, ETT. Discussed increased risk of respiratory complications/irritation and patient wishes to proceed. Region - Other Informed Consent: Anesthetic plan and risks discussed with patient. Plan discussed with BOOK AUTHOR. PAT Staff Note documented in this encounter Plan of Treatment Not on filedocumented as of this encounter Visit Diagnoses Not on filedocumented in this encounter Administered Medications Inactive Administered Medications - up to 3 most recent administrations Medication Order MAR Action Action Date Dose Rate Site dexamethasone (DECADRON) injection Given 10/21/2015 11:53 AM EDT 4 mg PRN, Starting on Mon10/21/15 at 1153, Until Mon10/21/15 at 1414, Anesthesia Intra-op, Routine fentaNYL 50 mcg/mL multi-dose injection Given 10/21/2015 11:38 AM EDT 100 mcg PRN, Starting on Mon10/21/15 at 1138, Until Mon10/21/15 at 1414, Pain, Anesthesia Intra-op, Routine glycopyrrolate (ROBINUL) multi-dose inje ction Given 10/21/2015 1:47 PM EDT 0.2 mg PRN, Starting on Mon10/21/15 at 1347, Until Mon10/21/15 at 1414, Anesthesia Intra-op, Routine HYDROmorphone (DILAUDID) injection Given 10/21/2015 2:11 PM EDT 0.6 mg PRN, Starting on Mon10/21/15 at 1237, Until Mon10/21/15 at 1414, Pain, Anesthesia Intra-op, Routine Given 10/21/2015 12:37 PM EDT 0.4 mg ketorolac (TORADOL) injection Given 10/21/2015 1:41 PM EDT 15 mg PRN, Starting on Mon10/21/15 at 1341, Until Mon10/21/15 at 1414, Pain, Anesthesia Intra-op, Routine lactated ringers infusion 1,000 mL New Bag 10/21/2015 12:48 PM EDT 1,000 mL, at 100 mL/hr, Intravenous, CONTINUOUS, Starting on Mon10/21/15 at 1115, Until Mon10/21/15 at 1604, Day of Surgery (Day of Procedure) New Bag 10/21/2015 10:51 AM EDT 1,000 mLs 100 mL/hr lidocaine (PF) (XYLOCAINE) 100 mg/5 mL (2 %) Given 11:38 AM EDT 80 mg injection PRN, Starting on Mon10/21/15 at 1138, Until Mon10/21/15 at 1414, Anesthesia Intra-op, Routine magnesium sulfate 4 mEq/mL (50 %) inject ion Given 10/21/2015 11:53 AM EDT 2 g PRN, Starting on Mon10/21/15 at 1153, Until Mon10/21/15 at 1414, Anesthesia Intra-op, Routine midazolam (PF) (VERSED) 1 mg/mL multi-dose Given 10/21/2015 11:2 9 AM EDT 2 mg injection PRN, Starting on Mon10/21/15 at 1129, Until Mon10/21/15 at 1414, Sleep, Anesthesia Intra-op, Routine neostigmine (PROSTIGMINE) multi-dose inj ection Given 10/21/2015 1:47 PM EDT 2 mg PRN, Starting on Mon10/21/15 at 1347, Until Mon10/21/15 at 1414, Anesthesia Intra-op, Routine ondansetron (ZOFRAN) injection Given 10/21/2015 12:39 PM EDT 4 mg PRN, Starting on Mon10/21/15 at 1239, Until Mon10/21/15 at 1414, Nausea, Anesthesia Intra-op, Routine propofol (DIPRIVAN) 10 mg/mL bolus injection Given 11:39 AM EDT 200 mg (Anesthesia) PRN, Starting on Mon10/21/15 at 1139, Until Mon10/21/15 at 1414, Anesthesia Intra-op rocuronium (ZEMURON) multi-dose injectio n Given 10/21/2015 1:33 PM EDT 20 mg PRN, Starting on Mon10/21/15 at 1140, Until Mon10/21/15 at 1414, Anesthesia Intra-op, Routine Given 10/21/2015 12:51 PM EDT 10 mg Given 10/21/2015 12:47 PM EDT 5 mg documented in this encounter Care Teams Reduction Plant Supervisor Relationship Specialty Start Date End Date None PCP - General 04/24/15 10/20/16 None documented as of this encounter
--- OUTSIDE RECORDS SUMMARY | 2022-04-07 11:31 | XMS_ITS | Encounter Summary ---
:1990 Author Organization [facility] [place] [address] Care Team Providers Name Role Phone None Primary Care Provider Unavailable Reason for Referral Diagnostic Test (Routine) - Closed Specialty Diagnoses / Procedures Referred By Contact Refer red To Contact Radiology Diagnoses Endometriosis Abdominal wall mass Carmen Henderson MD [facility] Rad Mri Procedures MRI Abdomen With/WO Contrast (GENERIC) [facility]STETRICS [facility] [place] [address] [place] [address] Referral ID Status Reason Start Date Expiration Date Visits V isits Requested Authorized [id number] Closed Specialty 08/31/2015 11/29/2015 1 1 Service Requested Reason for Visit Diagnostic Test (Routine) - Closed Specialty Diagnoses / Procedures Referred By Contact Refer red To Contact Radiology Diagnoses Endometriosis Abdominal wall mass Carmen Henderosn MD [facility] Rad Mri Procedures MRI Abdomen With/WO Contrast (GENERIC) [facility] [place] [address] [place] [address] Referral ID Status Reason Start Date Expiration Date Visits V isits Requested Authorized [id number] Closed Specialty 08/31/2015 11/29/2015 1 1 Service Requested Encounter Details Date Type Department Care Team Description 10/03/2015 Hospital Encounter MRI at [facility] Jaya Garrett Endometriosis; [facility] MD [place] Abdominal wall mass [address] [place] [address] OBSTETRICS & [phone] GYNECOLOGY [place] [id number] Social History Tobacco Use Types Packs/Day Years [...] evening. Reported on 10/20/2016 acetaminophen (TYLENOL) Take 500 mg by 0 10/21/2015 500 mg Tablet mouth every 6 hours as needed for Pain. Dextromethorphan HBr 5 Take 10 mg by 0 10/21/2015 mg/5 mL Syrup oral syrup mouth 4 times daily as needed for Cough. acetaminophen (TYLENOL) Take 2 tablets by 30 tablet 0 10/2011/09/2015 325 mg Tablet mouth every 6 hours as needed for Pain. oxyCODONE (ROXICODONE) 5 Take 1 tablet by 25 tablet 0 10/2011/09/2015 mg Tablet mouth every 4 hours as needed for Pain. docusate sodium (COLACE) Take 1 capsule by 30 capsule 0 10/0811/09/2015 100 mg Capsule mouth 2 times daily. ibuprofen (ADVIL;MOTRIN) 0 09/26/2015 10/21/2015 600 mg Tablet FLUoxetine (PROZAC) 10 mg Take 5 mg by mouth 0 10/21/2015 Capsule daily. ibuprofen (ADVIL;MOTRIN) Take 200 mg by 0 10/09/2015 200 mg Tablet mouth every 6 hours as needed for Pain. documented as of this encounter Plan of Treatment Not on filedocumented as of this encounter Procedures Procedure Name Priority Date/Time Associated Diagnosis Comme nts MRI ABDOMEN WWO Routine 10/03/2015 3:37 PM Endometriosis Results for this CONTRAST EDT Abdominal wall mass procedur e are in the results section. documented in this encounter Results MRI Abdomen With/WO Contrast (GENERIC) (10/03/2015 3:37 PM EDT) Anatomical Region Laterality Modality Abdomen Magnetic Resonance Specimen (Source) Anatomical Location Collection Method / Collectio n Time Received Time / Laterality Volume Impressions 10/05/2015 9:58 AM EDT IMPRESSION: Focus of intramuscular T2 hyperintensity and enhancement in the left rectus abdominis which is indeterminant. ??Diff erential would include an endometrial implant, vascular malformation (such as a hemangioma) or muscular injury. No corresponding imaging findings in the demarcated right hemiabdomen. I have personally reviewed the image(s) and the residents interpretation and agree with the findings, Bon stapleton at 10/05/2015 9:58 AM Narrative 10/05/2015 9:58 AM EDT EXAMINATION: MRI ABDOMEN WWO CONTRAST CLINICAL HISTORY: abdominal mass, lower right and left in fascia/subcutaneous adipose. May need to extend field to pel vis, surgical planning TECHNIQUE: MRI of the abdomen prior to a nd following IV administration of 7ml Gadavist. The right and left ventral abd ominal areas of concern were demarcated by Vitamin E capsules. COMPARISON: None FINDINGS: Ill-defined area of enhancement within t he anteromedial aspect of the left rectus abdominis muscle, (this correlate s with the left superficial skin marker of concern) which is asymmetrically enla rged and bulges the anterior rectus sheath at this level (series 9, image 43 ). On delayed postcontrast images, this area fills in more centrally and measure s 2.3 x 1.5 x 2.8 cm (transverse x anteroposterior x craniocaudal). This ar ea is hyperintense on T2-weighted images. Normal appearance of the visualized uter us and ovaries. No evidence of intraperitoneal endometrial implants. No dilated loops of bowel or focal bowel wall thickening. Symmetric size and enha ncement of the kidneys without dilatation of the urinary collecting sys tems. No pathologically enlarged nodes. Normal marrow signal throughout the visu alized axial skeleton. Procedure Note Bon Lara MD - 10/05/2015Form atting of this note might be different from the original. EXAMINATION: MRI ABDOMEN WWO CONTRAST CLINICAL HISTORY: abdominal mass, lower right and left in fascia/subcutaneous adipose. May need to extend field to pel vis, surgical planning TECHNIQUE: MRI of the abdomen prior to a nd following IV administration of 7ml Gadavist. The right and left ventral abd ominal areas of concern were demarcated by Vitamin E capsules. COMPARISON: None FINDINGS: Ill-defined area of enhancement within t he anteromedial aspect of the left rectus abdominis muscle, (this correlate s with the left superficial skin marker of concern) which is asymmetrically enla rged and bulges the anterior rectus sheath at this level (series 9, image 43 ). On delayed postcontrast images, this area fills in more centrally and measure s 2.3 x 1.5 x 2.8 cm (transverse x anteroposterior x craniocaudal). This ar ea is hyperintense on T2-weighted images. Normal appearance of the visualized uter us and ovaries. No evidence of intraperitoneal endometrial implants. No dilated loops of bowel or focal bowel wall thickening. Symmetric size and enha ncement of the kidneys without dilatation of the urinary collecting sys tems. No pathologically enlarged nodes. Normal marrow signal throughout the visu alized axial skeleton. IMPRESSION IMPRESSION: Focus of intramuscular T2 hyperintensity and enhancement in the left rectus abdominis which is indeterminant. Differ ential would include an endometrial implant, vascular malformation (such as a hemangioma) or muscular injury. No corresponding imaging findings in the demarcated right hemiabdomen. I have personally reviewed the image(s) and the residents interpretation and agree with the findings, Bon stapleton at 10/05/2015 9:58 AM Jaya Garrett MD IMG MRI ORDERABLES documented in this encounter Visit Diagnoses Diagnosis Endometriosis Endometriosis, site unspecified Abdominal wall mass Abdominal or pelvic swelling, mass or mounika mp, unspecified site documented in this encounter Administered Medications Inactive Administered Medications - up to 3 most recent administrations Medication Order MAR Action Action Date Dose Rate Site gadobutrol (GADAVIST) 1 mMol/mL Given 10/03/2015 3:37 PM EDT 7 m Ls injection 7.39 mL 7.39 mL (0.1 mL/kg/dose ? 73.9 kg Order-specific weight), Intravenous, ONCE PRN, 1 dose, Starting on 10/03/15 at 1500, Until 10/03/15 at 1537, Per Protocol, Routine documented in this encounter Care Teams Cell Lead Relationship Specialty Start Date End Date None PCP - General 04/24/15 10/20/16 None documented as of this encounter
--- OUTSIDE RECORDS SUMMARY | 2022-04-07 11:31 | XMS_ITS | Encounter Summary ---
:1990 [place] [address] Care Team Providers Name Role Phone None Primary Care Provider Unavailable Encounter Details Date Type Department Care Team Description 07/27/2015 Orders Only [place]rology [place] [facility] Duane Ballard MD [facility] [place] [id number] [place] [id number] [phone] (Wo rk) Social History Tobacco Use Types [...] on filedocumented in this encounter Care Teams Sliver Former Relationship Specialty Start Date End Date None PCP - General 04/24/15 10/20/16 None documented as of this encounter
--- OUTSIDE RECORDS SUMMARY | 2022-04-07 11:31 | XMS_ITS | Encounter Summary ---
:1990 Author Organization [facility] [place] [address] Care Team Providers Name Role Phone None Primary Care Provider Unavailable Reason for Visit Reason Onset Date Comments Post Procedure Call 10/22/2015 Encounter Details Date Type Department Care Team Description 10/22/2015 Telephone Obstetrics and Gynecology Eve Fox [place] [address] Social History Tobacco Use Types Packs/Day Years [...] Telephone Encounter - Eve Fox RN - 10/22/2015 9:50 AM EDT Surgery Date: 10/21/2015 Caller: Eve Fox RN Reason for call: Post-op Surgery phone call. Procedure(s): LAPAROSCOPY W/FULGURATION OR EXC LESION, OVARY, VISCERA OR PERITONEAL SURFACE INSERTION OF IUD, VAGINAL APPROACH FOREIGN BODY REMOVAL,SIMPLE SUBCUTANEOUS, ABDOMEN Speaking with: patient Condition of patient: I am having pain Pain control: taking medications, patient needed clarification on medication and how to take pain medication Dressings to incision sites: 4 incision sites, open to air with dermabond in place Tolerating solids/liquids: yes Had a BM or passing flatus: passing flatus, no BM, informed patient to start taking colace twice daily Voiding: yes Vaginal Bleeding: reports minimal bleeding Plan: Reviewed telephone contacts. Questions/concerns to call clinic at [phone]. * patient to call clinic to schedule follow up appointment at later time documented in this encounter Plan of Treatment Not on filedocumented as of this encounter Visit Diagnoses Not on filedocumented in this encounter Care Teams Assembler Faucets Relationship Specialty Start Date End Date None PCP - General 04/24/15 10/20/16 None documented as of this encounter
--- OUTSIDE RECORDS SUMMARY | 2022-04-07 11:31 | XMS_ITS | Encounter Summary ---
:1990 Author Organization [facility] [place] [address] Care Team Providers Name Role Phone None Primary Care Provider Unavailable Reason for Referral Diagnostic Test (Routine) - Closed Specialty Diagnoses / Procedures Referred By Contact Refer red To Contact Radiology Diagnoses Endometriosis Abdominal wall mass Esther Henderson MD [facility] Rad Mri Procedures MRI Abdomen With/WO Contrast (GENERIC) [facility] OBSTETRICS [place] [address] [place] [address] Referral ID Status Reason Start Date Expiration Date Visits V isits Requested Authorized [id number] Closed Specialty 08/31/2015 11/29/2015 1 1 Service Requested Encounter Details Date Type Department Care Team Description 08/31/2015 Office Visit Obstetrics and Esther Henderson Endometr iosis; Gynecology at [facility] [place] MD Jorge Abdominal wall mass [facility]ly [facility] [place] [place] [address] OBSTETRICS & [phone] GYNECOLOGY [place], [place] [address] (Wo rk) Social History Tobacco [...] Sign Reading Time Taken Comments Blood Pressure 118/64 08/31/2015 8:30 AM EST Pulse 67 08/31/2015 8:30 AM EST Temperature 36.8 ??C (98.3 ??F) 08/31/2015 8:30 AM EST Respiratory Rate 20 08/31/2015 8:30 AM EST Oxygen Saturation - - Inhaled Oxygen Concentration - - Weight 76.4 kg (168 lb 6.4 oz) 08/31/2015 8:30 AM EST Height 166.4 cm (5' 5.5) 08/31/2015 8:30 AM EST Body Mass Index 27.6 08/31/2015 8:30 AM EST documented in this encounter Progress Notes Jaya Riley MD - 08/31/2015 4:53 PM EST I saw and evaluated Sabrina Stauffer. I agree with the findings and the plan of care as documented inthe resident's note. She will have a pelvic MRI prior to her procedure to assess for the presence of additional implants on her right side. JAYA RILEY MD Esther Henderson MD - 08/31/2015 8:27 AM EST Follow-up Office Visit Patient Name: Sabrina Stauffer Date of : 1990 Primary Care Provider: None Date of Visit: 08/31/2015 Reason for Visit: SABRINA STAUFFER is a 25 y.o. female who presents with c/o: possible endometrial implants in her abdomen Subjective: Patient returns for evaluation for abdominal mass thought to be an endometrial implant. She tried micronor for 2.5months and while it provided some relief, it did not take all of the pain away. She would like to pursue surgical intervention. She has also noticed another bump on the right side of her abdominal wall that feels similar to the mass on the left. She describes her discomfort asburning and stinging on right, sharp pain on the left.She notes increase in discomfort around her cycle. Sabrina feels like they become larger leading up to her menses. Patient's last menstrual period was 08/27/2015 (exact date).. Menstrual cycle monthly, unsure of days lasting 8 days. OB History Para Term AB TAB SAB Ectopic Multiple Living 2 2 2 2 # Outc Date GA Lbr Galen/2nd Wgt Sex Del Anes PTL Lv 1 Term 2 Term Last PAP unsure, has never had an abnormal. Past Medical History Diagnosis Date ??? PMDD [...] Used ??? Alcohol Use: Yes Comment: seldom ??? Drug Use: No ??? Sexual Activity: Partners: Male Control/ Protection: Surgical Other Topics Concern ??? None Social History Narrative Lives with two children and boyfriend (Reymundo STEWART) ROS: No fevers, chills, chest pain, sob, pain with defecation, no diarrhea or constipation, no abnormal vaginal discharge. No dysuria or hematuria. Slight cough, getting over an illness. Current Outpatient Prescriptions Medication Sig Dispense Refill ??? Ranitidine HCl (ZANTAC) 300 mg Capsule Take 300 mg by mouth every evening. ??? ibuprofen (ADVIL;MOTRIN) 200 mg Tablet Take 200 mg by mouth every 6 hours as needed for Pain. ??? FLUoxetine (PROZAC) 10 mg Capsule Take 5 mg by mouth daily. ??? norethindrone (ORTHO MICRONOR) 0.35 mg Tablet Take 1 tablet by mouth daily. 28 tablet 12 No current facility-administered medications for this visit. Allergies Allergen Reactions ??? Zoloft [Sertraline] Itching Objective: Filed Vitals: 08/31/15 0830 BP: 118/64 Pulse: 67 Temp: 36.8 ??C (98.3 ??F) TempSrc: Oral Resp: 20 Height: 166.4 cm (5' 5.5) Weight: 76.386 kg (168 lb 6.4 oz) General - Well-appearing, NAD CV - RRR Lungs - CTAB Abdomen - soft, non-distended, nodule under LLQ incision scar. Unable to appreciate distinct nodularity on the right side. No rebound or guarding. Labs/Imaging: OSH US 04/06/15 Soft tissue ultrasound was performed to evaluate a questionable palpable abnormality of the abdominal wall located appx 10cm inferior to the umbilicus. US: solid, slightly heterogeneous echotexture mass measuring about 2 cm in greatest diameter within the scar and increed paralesional vascular flow. Assessment/Plan: Sabrina Stauffer is a 25 y.o. female with likely an endometrial implant at the site of a previous excision for the same. She may have another site on the right but is very difficult to palpate. For surgical planning, we will obtain an MRI to see if the mass on the right can be better visualized. We will also have the patient alan the site prior to surgery. The left-sided mass is clearly palpable under the prior scar. Discussed that we would not excise a mass on the right unless it were clear. Additionally, I recommended placing a Mirena IUD during the time of the surgery to see if that helpswith her endometriosis symptoms. She had a Paragard and thought it was painful plus the uterine bleeding was not desirable. Her partner also complained of discomfort during intercourse. Consent for abdominal mass excision, laparoscopy with fulguration of endometrial implants and possible Mirena placement was discussed today. Risks include but are not limited to infection, bleeding, injury to surrounding structures (bowel, bladder, ureters, uterus, tubes, ovaries, nerves, vessels). Discussed Mirena failure, but has tubal ligation so this should not be an issue. Questions answered andconsent was signed. Patient was unsure of Mirena placement but is leaning towards having it placed especially if it is during the procedure. She will confirm on the day of surgery. Sabrina would like surgery in October. The order is in and she may need to return for an updated H&P. Will call with MRI results. Discussed and seen with Dr. Riley, Client Renewal Specialist Attending ESTHER HENDERSON MD, PGY3 documented in this encounter Plan of Treatment Not on filedocumented as of this encounter Procedures Procedure Name Priority Date/Time Associated Diagnosis Comme nts LAP W/FULGURATION/EXC Routine 08/31/2015 9:16 AM EST End ometriosis LESION, OVARY, VISCERA Abdominal wall mas s OR PERITONEAL SURFACE documented in this encounter Results MRI Abdomen [...] [place] at 10/05/2015 9:58 AM Jaya Riley MD IMG MRI ORDERABLES documented in this encounter Visit Diagnoses Diagnosis Endometriosis Endometriosis, site unspecified Abdominal wall mass Abdominal or pelvic swelling, mass or mounika mp, unspecified site Endometriosis Endometriosis, site unspecified Abdominal wall mass Abdominal or pelvic swelling, mass or mounika mp, unspecified site documented in this encounter Care Teams Machine Hose Cutter Relationship Specialty Start Date End Date None PCP - General 04/24/15 10/20/16 None documented as of this encounter
--- OUTSIDE RECORDS SUMMARY | 2022-04-07 11:31 | XMS_ITS | Encounter Summary ---
:1990 Author Organization [facility] [place] [address] Care Team Providers Name Role Phone None Primary Care Provider Unavailable Reason for Visit Reason Comments Pre-op Exam Encounter Details Date Type Department Care Team Description 10/09/2015 Office Visit Obstetrics and Gynecology Jaya Rubio MD Endometriosis at [facility] [address] [place] & [place] [address] GYNECOLOGY [phone] [place] [id number] (Wo rk) Social History Tobacco Use Types [...] Sign Reading Time Taken Comments Blood Pressure 102/62 10/09/2015 1:19 PM EDT Pulse 82 10/09/2015 1:19 PM EDT Temperature - - Respiratory Rate 18 10/09/2015 1:19 PM EDT Oxygen Saturation - - Inhaled Oxygen Concentration - - Weight 75.3 kg (165 lb 14.4 oz) 10/09/2015 1:19 PM EDT Height 166.4 cm (5' 5.5) 10/09/2015 1:19 PM EDT Body Mass Index 27.19 10/09/2015 1:19 PM EDT documented in this encounter H&P Notes Jaya Riley MD - 10/14/2015 2:56 PM EDT GYNECOLOGY PRE-OPERATIVE ASSESSMENT Date of Visit: 10/09/2015 Planned Procedure: excision of abdominal wall endometriomas. Laparoscopy with fulguration of endometriosis. Indications/Pre-op Diagnosis: abdominal wall endometriomas, recurrent. Pelvic endometriosis. HPI: Sabrina Sahni is a 25 y.o. female here in preoperative consultation for above. She has a history of two prior c-sections followed by excision of c- section scar endometrioma on her left side. She did get some relief and then this painful mass recurred in the same area. She notes additional painful area on the right side of the scar. REVIEW OF SYSTEMS/FUNCTIONAL STATUS: Review of Systems - History obtained from the patient General ROS: negative Bleeding disorder (h/o nose bleeds, excessive bleeding following a surgical procedure?): x Personal or Family history of blood clots?: x Patient's last menstrual period was 09/25/2015 (exact date). Sexually active?: y Contraception: tubal Past anesthesia problems?: no HISTORY OB History Para Term AB TAB SAB Ectopic Multiple Living 2 2 2 2 Patient Active Problem List Diagnosis Code ??? Endometriosis N80.9 ??? Postural dizziness R42 ??? Abdominal wall mass R19.00 ??? Worsening headaches R51 Past Medical History Diagnosis Date ??? PMDD (premenstrual dysphoric disorder) ??? Headache(784.0) Past Surgical History Procedure Laterality Date ??? section x2 ??? Abdominal exploration surgery endometrioma removal ??? Sterilization FAMILY HISTORY family history is not on file. SOCIAL HISTORY Social History Occupational History ??? Not on file. Social History Main Topics ??? Smoking status: Current Every Day Smoker -- 0.50 packs/day ??? Smokeless tobacco: Never Used ??? Alcohol Use: Yes Comment: seldom ??? Drug Use: No ??? Sexual Activity: Partners: Male Control/ Protection: Surgical reports that she has been smoking. She has never used smokeless tobacco. She reports that she drinks alcohol. She reports that she does not use illicit drugs. Allergies Allergen Reactions ??? Zoloft [Sertraline] Itching Outpatient Prescriptions Marked as Taking for the 10/09/15 encounter (Office Visit) with Jaya Riley MD Medication Sig Dispense Refill ??? ibuprofen (ADVIL;MOTRIN) 600 mg Tablet 0 ??? Ranitidine HCl (ZANTAC) 300 mg Capsule Take 300 mg by mouth every evening. Wt Readings from Last 3 Encounters: 10/09/15 75.252 kg (165 lb 14.4 oz) 08/31/15 76.386 kg (168 lb 6.4 oz) 07/27/15 76.204 kg (168 lb) Body mass index is 27.18 kg/(m^2). Filed Vitals: 10/09/15 1319 BP: 102/62 Pulse: 82 Resp: 18 Physical Exam: On exam she appeared her stated age and in no acute distress. Skin:non-diaphoretic, without rash/lesions Neurological: She is alert and oriented to person, place, and time. Psychiatric: Affect is appropriate. HEENT: Normocephalic. Anicteric, normal scleral and conjunctivae. Neck is supple without thyromegaly or lymphadenopathy Lungs were clear to auscultation bilaterally. Heart regular rate and rhythm without murmurs or gallops. The abdomen was soft, non-tender, and without guarding or rebound. No masses or organomegaly. Surgical scars: Pfannenstiel incision Examination of the extremities revealed no cyanosis, clubbing or edema. Pelvic Exam: Deferred to OR Lab/ Radiology Review Results for orders placed or performed in visit on 05/29/15 Hemogram Result Value Ref Range WBC 5.9 [...] Gran Abs 0.00 0.00 - 0.05 x10(3)/mcL ASSESSMENT: 25 y.o. female seen today in preoperative consultation for excision of abdominal wall endometriomas and laparoscopy with fulguration of endometriosis. PLAN: ??? We will proceed with the above procedures. ??? Anesthesia preference: per anesthesia ??? (x) Medications and herbal preparations reviewed Discussed: (x) Discontinuation of all herbal preparations, vitamin E 7-10 days preop (x) ASA, NSAIDS, Plavix: xNA (X) Hormones: NA ?? (x) Discontinue Solid foods at midnight ??? (X) Clear liquids (water, apple juice, s[place], or black coffee) may be consumed until 2 hours prior to scheduled procedure. Informed consent: per Dr. BOGDAN RILEY MD documented in this encounter Plan of Treatment Not on filedocumented as of this encounter Visit Diagnoses Diagnosis Endometriosis Endometriosis, site unspecified documented in this encounter Care Teams Bakery Clerk Relationship Specialty Start Date End Date None PCP - General 04/24/15 10/20/16 None documented as of this encounter
--- OUTSIDE RECORDS SUMMARY | 2022-04-07 11:31 | XMS_ITS | Encounter Summary ---
:1990 Author Organization [facility] [place] [address] Care Team Providers Name Role Phone None Primary Care Provider Unavailable Encounter Details Date Type Department Care Team Description 08/31/2015 Telephone Obstetrics and Gynec ology at [facility] [place] [address] Social History Tobacco Use Types Packs/Day Years [...] encounter Miscellaneous Notes Telephone Encounter - Lia Lin - 08/31/2015 10:11 AM EST PATIENT SCHEDULED documented in this encounter Plan of Treatment Not on filedocumented as of this encounter Visit Diagnoses Not on filedocumented in this encounter Care Teams Paralegal Secretary Relationship Specialty Start Date End Date None PCP - General 04/24/15 10/20/16 None documented as of this encounter
--- OUTSIDE RECORDS SUMMARY | 2022-04-07 11:31 | XMS_ITS | Encounter Summary ---
:1990 Author Organization [place] [address] Care Team Providers Name Role Phone None Primary Care Provider Unavailable Reason for Visit Reason Onset Date Comments Follow-up 10/20/2015 Encounter Details Date Type Department Care Team Description 10/20/2015 Telephone Obstetrics and Gynecology at [facility], Follow-up [facility] [place] [address] Social History Tobacco Use Types Packs/Day Years [...] this encounter Miscellaneous Notes Telephone Encounter - Roxann Thomas RN - 10/20/2015 11:25 AM EDT Addendum: Dr Garrett advised that patient can come tomorrow as scheduled. Spoke with patient and shewill await call from [facility] to procedure tomorrow. Telephone Encounter - Roxann Thomas RN - 10/20/2015 8:55 AM EDT Caller: Roxann Thomas RN Learning Needs Assessment Reviewed: Yes Subjective Patient presents with: Follow-up Objective/Assessment Called patient to follow up. She is scheduled for surgery tomorrow. She still has a cold, congestion but no cough, no fever but her throat is still scratchy. She thinks it is more her sinuses. Symptom onset:several days Location:Upper respirtatory Duration:NA Characteristics:congestions, scratchy throat Aggravating factors:NA Relieving factors:NA Timing:NA Severity:NA Pertinent Past Medical History:Endometriosis Plan Intervention/Plan/ Follow Up: Advised patient I will let Dr Garrett know and call her back with a plan for tomorrow's surgery. documented in this encounter Plan of Treatment Not on filedocumented as of this encounter Visit Diagnoses Not on filedocumented in this encounter Care Teams Radio Interference Investigator Relationship Specialty Start Date End Date None PCP - General 04/24/15 10/20/16 None documented as of this encounter
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
--- OUTSIDE RECORDS SUMMARY | 2022-04-07 11:31 | XMS_ITS | Encounter Summary ---
:1990 Author Organization [facility] [place] [address] Care Team Providers Name Role Phone None Primary Care Provider Unavailable Reason for Visit Reason Comments Establish Care Consultation (Routine) - Closed Specialty Diagnoses / Procedures Referred By Contact Refer red To Contact Obstetrics and Diagnoses ENDOMETIOSIS IN CUTANEOUS SCAR Mari Bennett MD [facility] 5l Gynecology Procedures EVAL [address] [place], [place] [address] [place] [phone] Phone: Fax: Referral ID Status Reason Start Date Expiration Date Visits Requ ested Visits Authorized [id number] Closed 04/14/2015 04/13/2016 1 1 Encounter Details Date Type Department Care Team Description 04/24/2015 Office Visit Obstetrics and Carmen Henderson Endometr iosis (Primary Dx); Gynecology at [facility] MD Jorge Postural dizziness; [facility] Abdominal wall mass [address] [facility] [id number] GYNECOLOGY [phone] [place], [place] [address] Social History Tobacco Use Types Packs/Day Years Used Date Current Every Day Smoker 0.5 Sex Assigned at Date Recorded Not on file documented as of this encounter Last Filed Vital Signs Vital Sign Reading Time Taken Comments Blood Pressure 102/58 04/24/2015 11:12 AM EDT Pulse 64 04/24/2015 11:12 AM EDT Temperature 36.4 ??C (97.6 ??F) 04/24/2015 11:12 AM EDT Respiratory Rate 16 04/24/2015 11:12 AM EDT Oxygen Saturation - - Inhaled Oxygen Concentration - - Weight 73.1 kg (161 lb 1.6 oz) 04/24/2015 11:12 AM EDT Height 166.4 cm (5' 5.5) 04/24/2015 11:12 AM EDT Body Mass Index 26.4 04/24/2015 11:12 AM EDT documented in this encounter Progress Notes Jaya Riley MD - 04/27/2015 11:46 AM EDT Sabrina Stauffer was discussed with me at the time of the visit or immediately after the visit. The assessment and plan were formulated in discussion with me and I agree with them as documented. I have reviewed the history, physical exam, assessment and plan with the resident. JAYA RILEY MD Carmen Henderson MD - 04/24/2015 11:48 AM EDT Consultation Visit Patient Name: Sabrina Stauffer Date of : 1990 Primary Care Provider: None (General) Date of Visit: 04/24/2015 Reason for Visit: SABRINA STAUFFER is a 24 y.o. . female who was referred by Mari Bennett MD [address] [place] [address] presents with c/o: endometriosis with 2cm abdominal wall mass. Subjective: Sabrina presents today with her 5 yo son Aren to discuss surgical options regarding a 2 cm palpable mass in her mini-laparotomy scar. Sabrina noticed the mass and it has been painful at times. She describes the discomfort as a tearing sensation that worsens during her menstrual cycle and when she sneezes or coughs. It also feels like burning. She would like to this mass removed. Sabrina has tried multiple therapies for her endometriosis. She had headaches and migraines when she was a teenager on combine OCPs and has not tried them again. She had a Paragard IUD for 3 years but states she could feel it, her partner could also feel it and she had a lot of abnormal uterine bleeding. It was recommended that she should have depot shot but is weary of the weight gain as a side effect and can't afford to purchase new clothing. Sabrina smokes 1/2 ppd but has quit in the past for periods of time. She does not feel ready to do that currently and lives with another person who smokes andis not interested in quitting. Patient's last menstrual period was 04/11/2015.. Menstrual cycle every 28 days lasting 8 days. Heavyto light. Cramps with leg cramps and bloating. OB History Para Term AB TAB SAB Ectopic Multiple Living 2 2 2 2 # Outc Date GA Lbr Galen/2nd Wgt Sex Del Anes PTL Lv 1 Term 2 Term No past medical history on file. Past Surgical History Procedure Laterality Date ??? section x2 ??? Abdominal exploration surgery endometrioma removal No family history on file. History Social History ??? Marital Status: Single Spouse Name: N/A Number of Children: N/A ??? Years of Education: N/A Social History Main Topics ??? Smoking status: Current Every Day Smoker -- 0.50 packs/day ??? Smokeless tobacco: None ??? Alcohol Use: None ??? Drug Use: None ??? Sexual Activity: None Other Topics Concern ??? None Social History Narrative Lives with two children and boyfriend (Ryemundo STEWART) ROS: Constitutional - No fevers, fatigue, night sweats, unanticipated changes in weight. HEENT - No new headaches, vision/hearing changes. Pulmonary - No cough or SOB. Had a virus a couple weeks ago Cardiac - No CP or palpitations. GI - No abdominal pain, no vomiting, diarrhea, constipation, melena. +nauseated - No dysuria, hematuria, polyuria. No vaginal discharge. Endocrine - No intolerance to heat/cold. Musculoskeletal - No new muscle/joint aches. Heme - No easy bruising/hard to control bleeding. Neuro - dizziness with standing Skin - No rashes. Psych - No more depression/anxiety above normal. Current Outpatient Prescriptions Medication Sig Dispense Refill ??? FLUoxetine (PROZAC) 10 mg Capsule Take 5 mg by mouth daily. ??? omeprazole (PRILOSEC) 20 mg Capsule, Delayed Release(E.C.) Take 20 mg by mouth daily. ??? ibuprofen (ADVIL;MOTRIN) 200 mg Tablet Take 200 mg by mouth every 6 hours as needed for Pain. No current facility-administered medications for this visit. Allergies Allergen Reactions ??? Zoloft [Sertraline] Itching Objective: Filed Vitals: 04/24/15 1112 BP: 102/58 Pulse: 64 Temp: 36.4 ??C (97.6 ??F) TempSrc: Oral Resp: 16 Height: 166.4 cm (5' 5.5) Weight: 73.074 kg (161 lb 1.6 oz) General - Well-appearing female, in no apparent distress Abdomen - 5cm scar in left lower quadrant and pfannensteil both well-healed. Small 2 cm mass noted near 5cm scar that was in soft tissue. Soft, non- distended, mildly tender in LLQ, no rebound or guarding. Pelvic exam: deferred Extremities: no TOI Psych: appropriate in behavior and response. Labs/Imaging: OSH US 04/06/15 Soft tissue ultrasound was performed to evaluate a questionable palpable abnormality of the abdominal wall located appx 10cm inferior to the umbilicus. US: solid, slightly heterogeneous echotexture mass measuring about 2 cm in greatest diameter within the scar and increed paralesional vascular flow. Assessment/Plan: Sabrina Stauffer is a 24 y.o. female with h/o endometriosis and a 2cm soft tissue mass that is more painful during her menses. This mass may be an endometrial implant from her initial mini-laparotomy to remove an endometrioma. This would explain the increased discomfort correlating with her cycles. It could also be an inclusion cyst from the scar tissue. Today we discussed theoptions of surgical removal which could also include a laparoscopy to fulgurate any other endometrial implants in the pelvis or abdomen. Sabrina was unsure if she would want this additional procedure atthe same time. We also discussed that endometriosis effects every woman differently and the burden of disease may not correlate with symptoms. The best way to manage this is through ovarian suppression. The patient does not want to try the Mirena IUD, depot and had symptoms on combined OCPs. She is amenable to trying progestin only pills and we discussed the side effect of having intramenstrual/unpredictable bleeding. Sabrina was ok with this risk. There is a possibility that by suppressing her ovaries, the mass will become asymptomatic and she will not longer need a surgical intervention. Of note, Sabrina indicated postural hypotension/dizziness and a CBC was ordered to evaluate for anemia. If we do proceed to surgery, she may need to be started on iron supplementation. Either way, she should work on drinking plenty of water. Sabrina will try 1-2 months of the progestin only pills to see if they provide symptomatic relief andthen return for evaluation. If no change, may consider surgery. Thank you for the referral of this nica patient. I will keep you apprised of further developments. Discussed with Dr. Riley, attending physician. CARMEN HENDERSON MD, PGY3 04/24/2015 documented in this encounter Plan of Treatment Not on filedocumented as of this encounter Visit Diagnoses Diagnosis Endometriosis - Primary Endometriosis, site unspecified Postural dizziness Dizziness and giddiness Abdominal wall mass Abdominal or pelvic swelling, mass or mounika mp, unspecified site documented in this encounter Care Teams Stamper Blocker Relationship Specialty Start Date End Date None PCP - General 04/24/15 10/20/16 None documented as of this encounter
--- OUTSIDE RECORDS SUMMARY | 2022-04-07 11:31 | XMS_ITS | Encounter Summary ---
:1990 Author Organization [facility] [place] [address] Care Team Providers Name Role Phone None Primary Care Provider Unavailable Reason for Visit Reason Onset Date Comments Follow-up 08/10/2015 Encounter Details Date Type Department Care Team Description 08/10/2015 Telephone Obstetrics and Gynecology at Esther Funez MD Follow-up [facility] [place] [address] [place] [address] [phone] (Wo rk) Social History Tobacco Use Types [...] this encounter Miscellaneous Notes Telephone Encounter - Esther Henderson MD - 08/10/2015 8:00 AM EST Telephone Note Sabrina thought things were improving with her probable endometriosis implants while she was on the progesterone only pill; however, now it is worse and shes noticing other spots. I invited in her for an appointment to reassess. She desires surgical intervention.' ESTHER HENDERSON MD PGY3 08/10/2015 documented in this encounter Plan of Treatment Not on filedocumented as of this encounter Visit Diagnoses Not on filedocumented in this encounter Care Teams Transportation Aide Relationship Specialty Start Date End Date None PCP - General 04/24/15 10/20/16 None documented as of this encounter
== END 2022-04-07 11:25 | disposition home or self-care (01) ==
LOC: LBN 11:24
PROVIDERS: PCP Nurse Practitioner; Visit Provider Obstetrics & Gynecology Gynecology
DX: N89.8 Other specified noninflammatory disorders of vagina (principal); Z11.3 Encounter for screening for infections with a predominantly sexual mode of transmission; Z12.4 Encounter for screening for malignant neoplasm of cervix; Z11.51 Encounter for screening for human papillomavirus (HPV)
CPT/HCPCS: 88142; 87480; 87510; 87624; 87660

== ENCOUNTER 2022-07-07 15:31 | Outpatient (CLI) | payer BC, SELFPAY | END 2022-07-07 15:32 | disposition home or self-care (01) | LOC: DI.KIM 15:33 | PROVIDERS: PCP Nurse Practitioner; Visit Provider Nurse Practitioner | CPT/HCPCS: 93010 ==

== ENCOUNTER 2022-09-06 14:15 | Outpatient (CLI) | payer BC, SELFPAY ==
--- NOTE | 2022-09-06 14:15 | RT.EKG_ITS ---
APPROVED REPORT Exam: Resting ECG Reason for Exam: pt on jessy Patient Location: O HR:68 bpm ECG Measurements Heart Rate 68 AXIS DE 142 P 54 QRSd 94 QRS 51 QT 372 T 54 QTc 396 Conclusion Sinus rhythm...normal P axis, V-rate 50- 99 RSR' in V1 or V2, probably normal variant...small R' only Normal Electrocardiogram
== END 2022-09-06 14:16 | disposition home or self-care (01) ==
LOC: DI.KIM 14:17
PROVIDERS: PCP Nurse Practitioner; Visit Provider Nurse Practitioner
DX: Z51.81 Encounter for therapeutic drug level monitoring (principal)
CPT/HCPCS: 93010

== ENCOUNTER 2023-09-06 14:14 | Outpatient (REF) | payer BC, SELFPAY ==
[2023-09-07 13:33] LABS: Chlamydia Result Negative (Negative); GC Result Negative (Negative)
== END 2023-09-06 14:15 | disposition home or self-care (01) ==
LOC: LBN 14:14
PROVIDERS: PCP Nurse Practitioner; Visit Provider Obstetrics & Gynecology Gynecology
DX: N89.8 Other specified noninflammatory disorders of vagina (principal); Z11.3 Encounter for screening for infections with a predominantly sexual mode of transmission
CPT/HCPCS: 87491; 87591; 87480; 87510; 87660

== ENCOUNTER 2024-03-27 19:35 | Emergency (ER) | payer BC, SELFPAY ==
[2024-03-27 19:36] VITALS: BP 120/84; PULSE 88; RESP 16; TEMP 37.1; O2SAT 95
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
[2024-03-27] MEDS: Benzocaine 20% Gel 30 GM JAR MM (20:38)
== END 2024-03-28 12:13 | disposition home or self-care (01) ==
LOC: ER 20:24 → RED 20:43
PROVIDERS: Emergency Provider Registered Nurse Emergency; PCP Nurse Practitioner
DX: K08.89 Other specified disorders of teeth and supporting structures (principal); K04.7 Periapical abscess without sinus
CPT/HCPCS: 99283

== ENCOUNTER 2024-03-28 02:28 | Emergency (ER) | payer BC, SELFPAY ==
[2024-03-28 02:17] VITALS: BP 126/78; PULSE 74; RESP 16; TEMP 36.7; O2SAT 98
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
[2024-03-28] MEDS: Benzocaine 20% Gel 30 GM JAR MM (02:48)
== END 2024-03-28 02:52 | disposition home or self-care (01) ==
LOC: ER 02:43
PROVIDERS: Emergency Provider Student in an Organized Health Care Education/Training Program; PCP Nurse Practitioner
DX: K08.89 Other specified disorders of teeth and supporting structures (principal)
CPT/HCPCS: 10060; 64400; 99283

== ENCOUNTER 2024-03-28 11:26 | Emergency (ER) | payer BC, SELFPAY ==
[2024-03-28 11:26] VITALS: BP 132/82; PULSE 68; RESP 98; TEMP 36.4; O2SAT 98
[2024-03-28 11:38] VITALS: BP 132/82; PULSE 68; RESP 98; TEMP 36.4; O2SAT 98
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
== END 2024-03-28 12:13 | disposition home or self-care (01) ==
PROVIDERS: Emergency Provider Physician Assistant; PCP Nurse Practitioner
DX: K08.89 Other specified disorders of teeth and supporting structures (principal)
CPT/HCPCS: 99283

== ENCOUNTER 2024-12-24 10:52 | Outpatient (REF) | payer OTHER, SELFPAY ==
[2024-12-25 12:34] LABS: Chlamydia Result Negative (Negative); GC Result Negative (Negative)
== END 2024-12-24 10:53 | disposition home or self-care (01) ==
LOC: LBN 10:52
PROVIDERS: PCP Nurse Practitioner; Visit Provider Nurse Practitioner Women's Health
DX: N89.8 Other specified noninflammatory disorders of vagina (principal); Z97.5 Presence of (intrauterine) contraceptive device; R10.2 Pelvic and perineal pain; Z11.3 Encounter for screening for infections with a predominantly sexual mode of transmission
CPT/HCPCS: 87491; 87591; 87480; 87510; 87660

== ENCOUNTER 2025-01-01 00:13 | Outpatient (CLI) | payer OTHER, SELFPAY ==
--- NOTE | 2025-01-01 06:43 | DI.NM_ITS ---
Exam(s) NM HEPATOBILIARY CCK GRP EXAM: NM HEPATOBILIARY CCK GRP CLINICAL HISTORY: Dyspepsia with previous negative us,r10.13. TECHNIQUE: Injected dose: 5 mCi Tc-99 mebrofenin Initial dynamic images: 60 minutes Post-Gallbladder fillin.02 mcg/kg CCK intravenously over a 30min infusion. Additional images: 30 minute dynamic during CCK administration. COMPARISON: US US ABDOMEN LIMITED from 12/26/2024 FINDINGS: Normal hepatic transit time. Prompt excretion into the small bowel. Prompt excretion into the gallbladder. Gallbladder ejection fraction: 82 percent, in the normal range. IMPRESSION: 1. Normal gallbladder ejection fraction. SNM guidelines: Gallbladder visualization should be present by 3 hours. Delayed [id number] transit beyond 60 min raises the suspicion for partial common bile duct (CBD) obstruction. Gallbladder ejection fraction <35% has a good correlation with acalculous disease (i.e., chronic acalculous cholecystitis, cystic duct syndrome, sphincter of Oddi disease).
[2025-01-01] MEDS: Sincalide 5 MCG VIAL 1.2 MCG IJ (10:23)
[2025-01-01] MEDS: Water,Injection,Sterile 10 ML VIAL IJ (10:24)
== END 2025-01-01 00:33 ==
LOC: DI 00:13
PROVIDERS: PCP Nurse Practitioner; Visit Provider Surgery
DX: R10.13 Epigastric pain (principal)
CPT/HCPCS: 78227; J2805

== ENCOUNTER 2025-02-11 08:46 | Emergency (ER) | payer OTHER, SELFPAY ==
[2025-02-11 08:50] VITALS: BP 103/56; PULSE 74; RESP 16; O2SAT 96
[2025-02-11 08:59] VITALS: TEMP 36.8
--- NOTE | 2025-02-11 09:31 | DI.RAD_ITS ---
Exam(s) XR FINGER LT INDEX EXAM: XR FINGER LT INDEX EXAM DATE/TIME: CLINICAL HISTORY: L index finger bruise. TECHNIQUE: 2D digital imaging was performed of the left finger. Three views were obtained. PA/AP, oblique, and lateral views were obtained. COMPARISON: None. FINDINGS: BONES: No acute fracture is present. No bony destructive lesion is seen. JOINTS: No dislocation is present. SOFT TISSUE: Normal. IMPRESSION: No evidence of acute fracture or dislocation. DATA REPOSITORY: RADIATION DOSE DELIVERED:
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
== END 2025-02-11 10:05 | disposition home or self-care (01) ==
PROVIDERS: Emergency Provider Physician Assistant; PCP Nurse Practitioner
DX: S62.651A Nondisplaced fracture of middle phalanx of left index finger, initial encounter for closed fracture (principal); F17.210 Nicotine dependence, cigarettes, uncomplicated; W23.0XXA Caught, crushed, jammed, or pinched between moving objects, initial encounter; Y93.89 Activity, other specified; Y92.018 Other place in single-family (private) house as the place of occurrence of the external cause
CPT/HCPCS: 99283; 73140

== ENCOUNTER 2025-02-21 10:00 | Outpatient (CLI) | payer OTHER, SELFPAY ==
--- NOTE | 2025-02-21 14:40 | DI.RAD_ITS ---
Exam(s) XR FINGER LT INDEX EXAM: XR FINGER LT INDEX CLINICAL HISTORY: re-eval digit- please compare earlier film,FX LT INDEX FINGER,[id number]. TECHNIQUE: 2D digital imaging was performed. Three views. COMPARISON: 11 February 2025 FINDINGS: BONES: No on stable alignment of nondisplaced tuft fracture. No additional fractures are identified. No bony destructive lesion is seen. JOINTS: No dislocation present. SOFT TISSUE: Normal. IMPRESSION: Stable alignment nondisplaced tuft fracture. DATA REPOSITORY: RADIATION DOSE DELIVERED:
== END 2025-02-21 10:20 ==
PROVIDERS: PCP Family Medicine; Visit Provider Nurse Practitioner Family
DX: S62.661A Nondisplaced fracture of distal phalanx of left index finger, initial encounter for closed fracture (principal); X58.XXXA Exposure to other specified factors, initial encounter
CPT/HCPCS: 73140